=== PATIENT | male | born 1950 | race Caucasian/White ===

== ENCOUNTER 2016-12-19 01:22 | Observation (INO) | payer MEDICARE, OTHER ==
--- NOTE | 2016-12-19 01:42 | PDOC ---
History of Present Illness - General History Source: Patient, EMS <Nguyễn Ace - Last Filed: 12/19/16 04:31> - General History Source: Patient Exam Limitations: Intoxication - History of Present Illness Initial Comments: 12/19/16 02:04 The patient is a 66 year old male with no significant past medical history, who presents to the emergency department s/p unwitnessed mechanical fall earlier this evening. The patient reports he was had approximately 2 pints of vodka earlier this evening. After ETOH consumption, he reports going on a walk, slipping on ice, and falling on his left elbow. The patient does not report the length of time he was down for. He reports associated left elbow pain, that is exacerbated upon extension of the left arm. Per EMS, the patient was seen on the ground behind an [place]body shop [place] his home, during which neighbors called EMS to the scene. The patient denies any head trauma or LOC. The patient denies any fever, chills, cough, headache, or dizziness. The patient denies any chest pain, palpitations, shortness of breath, diaphoresis, lower extremity edema, or lightheadedness. The patient reports he has been able to ambulate normally prior to fall. Allergies: None reported. Past Surgical History: None reported. Social History: Current everyday smoker(30 cigarettes per day). Current ETOH use. Denies drug use. PCP: Dr. Gonzalo Naylor <Ephraim Marin - Last Filed: 12/19/16 06:50> - General Chief Complaint: Bone Injury Stated Complaint: INJURY TO LEFT ELBOW Time Seen by Provider: 12/19/16 01:42 Past History - Psycho/Social/Smoking Cessation Hx Suicidal Ideation: No Smoking History: Current every day smoker Number of Cigarettes Smoked Daily: 30 Information on smoking cessation initiated: No Hx Alcohol Use: No Drug/Substance Use Hx: No <Nguyễn Ace - Last Filed: 12/19/16 04:31> <Ephraim Marin - Last Filed: 12/19/16 06:50> - Past Medical History Allergies/Adverse Reactions: Allergies Allergy/AdvReac Type Severity Reaction Status Date / Time No Known Allergies Allergy Verified 12/19/16 01:32 Home Medications: Ambulatory Orders NK [No Known Home Medication] 12/19/16 Review of Systems - Review of Systems Able to Perform ROS?: Yes Comments:: 12/19/16 02:06 CONSTITUTIONAL: Absent: fever, no chills, no fatigue EYES: Absent: visual changes ENT: Absent: ear pain, no sore throat CARDIOVASCULAR: Absent: chest pain, no palpitations RESPIRATORY: Absent: cough, no SOB GI: Absent: abdominal pain, no nausea, no vomiting, no constipation, no diarrhea GENITOURINARY: Absent: dysuria, no frequency, no hematuria MUSKULOSKELETAL: Present: +left elbow pain Absent: back pain SKIN: Absent: rash NEURO: Absent: headache <Marin,Giomilsy - Last Filed: 12/19/16 06:50> *Physical Exam - Vital Signs Last Vital Signs Temp Pulse Resp BP Pulse Ox 98.6 F 99 H 14 134/94 97 12/19/16 01:32 12/19/16 01:32 12/19/16 01:32 12/19/16 01:32 12/19/16 01:32 <Nguyễn Ace - Last Filed: 12/19/16 04:31> - Vital Signs Last Vital Signs Temp Pulse Resp BP Pulse Ox 98.6 F 99 H 14 134/94 97 12/19/16 01:32 12/19/16 01:32 12/19/16 01:32 12/19/16 01:32 12/19/16 01:32 - Physical Exam Comments: 12/19/16 02:05 GENERAL: Well developed, well nourished. Awake and alert. No acute distress. HEENT: Normocephalic, atraumatic. PERRLA, EOMI. No conjunctival pallor. Sclera are non- icteric. Moist mucous membranes. Oropharynx is clear. NECK: Supple. Full ROM. No JVD. Carotid pulses 2+ and symmetric, without bruits. No thyromegaly. No lymphadenopathy. CARDIOVASCULAR: Regular rate and rhythm. No murmurs, rubs, or gallops. Distal pulses are 2+ and symmetric. PULMONARY: No evidence of respiratory distress. Lungs clear to auscultation bilaterally. No wheezing, rales or rhonchi. ABDOMINAL: Soft. Non-tender. Non-distended. No rebound or guarding. No organomegaly. Normoactive bowel sounds. MUSCULOSKELETAL Major left elbow deformity. No CVA tenderness. EXTREMITIES: No cyanosis. No clubbing. No edema. No calf tenderness. SKIN: Warm and dry. Normal capillary refill. No rashes. No jaundice. NEUROLOGICAL: Alert, awake, appropriate. Cranial nerves 2-12 intact. No deficits to light touch and temperature in face, upper extremities and lower extremities. No motor deficits in the in face, upper extremities and lower extremities. Normoreflexic in the upper and lower extremities. Normal speech. Toes are down- going bilaterally. Gait is normal without ataxia. PSYCHIATRIC: Cooperative. Good eye contact. Appropriate mood and affect. <Ephraim Marin - Last Filed: 12/19/16 06:50> Heart Score/ECG Review - ECG Impressions Comment:: 12/19/16 02:59 Vent. Rate: 95 bpm IMPRESSION: Sinus rhythm with occasional premature ventricular complexes. Possible anterolateral infarct. <Ephraim Marin - Last Filed: 12/19/16 06:50> ED Treatment Course - LABORATORY CBC & Chemistry Diagram: 12/19/16 01:35 12/19/16 03:15 <Nguyễn Ace - Last Filed: 12/19/16 04:31> - LABORATORY CBC & Chemistry Diagram: 12/19/16 01:35 12/19/16 03:15 - Medications Given in the ED: ED Medications Discontinued Medications Generic Name Dose Route Start Last Admin Trade Name Teddyq PRN Reason Stop Dose Admin Morphine Sulfate 6 mg 12/19/16 01:47 12/19/16 01:55 Morphine Injection - IVPUSH 12/19/16 01:48 6 mg ONCE ONE Administration Ondansetron HCl 4 mg 12/19/16 01:47 12/19/16 01:55 Zofran Injection IVPUSH 12/19/16 01:48 4 mg ONCE STA Administration <Ephraim Marin - Last Filed: 12/19/16 06:50> Medical Decision Making - Medical Decision Making 12/19/16 04:31 Dr. Ace: The scribe's documentation has been prepared under my direction and personally reviewed by me in its entirery. I confirm that the note above accurately reflects all work, treatment, procedures, and medical decision making performed by me. Patient underwent moderate sedation for reduction of his left elbow. patient pre-medicated with IV ketamine 80 mg, patient also given Versed 2 mg. Reduction was achieved by traction counter traction above and below joint. 40 mg additional ketamine ivp. Patient placed an posterior splint patient tolerated procedure well <Nguyễn Ace - Last Filed: 12/19/16 04:31> - Medical Decision Making 12/19/16 02:43 First call placed to Dr. Garcia at 02:42. Case discussed at this time. First call placed to Dr. Bhatti at 06:49. Awaiting call back. <Ephraim Marin - Last Filed: 12/19/16 06:50> *DC/Admit/Observation/Transfer - Discharge Dispostion Admit: Yes <Nguyễn Ace - Last Filed: 12/19/16 04:31> - Attestations Scribe Attestion: 12/19/16 02:08 Documentation prepared by Ephraim Marin, acting as medical art therapist for Nguyễn Ace DO. <Ephraim Marin - Last Filed: 12/19/16 06:50> Diagnosis at time of Disposition: Left elbow fracture Qualifiers: Encounter type: initial encounter Fracture type: closed Qualified Code(s): S42.402A - Unspecified fracture of lower end of left humerus, initial encounter for closed fracture Dislocation, elbow closed Qualifiers: Laterality: left - Referrals
[2016-12-19] MEDS ORDERED: morphine CARPU-JECT 2 MG/1 ML DISP.SYRIN IVPUSH ONE (01:47)
[2016-12-19] MEDS ORDERED: ONDANSETRON 4 MG/2 ML VIAL IVPUSH STA (01:47)
[2016-12-19] MEDS ORDERED: morphine CARPU-JECT 4 MG/1 ML DISP.SYRIN ONE (01:51)
[2016-12-19] MEDS ORDERED: morphine CARPU-JECT 2 MG/1 ML DISP.SYRIN ONE (01:51)
[2016-12-19 02:04] LABS: BASOPHIL 1.1 % (0-2.0); EOSINOPHIL 0.4 % (0-4.5); MCH 29.3 pg (25.7-33.7); MCHC 32.7 g/dl (32.0-35.9); MEAN CELL VOLUME 89.9 fl (80-96); MEAN PLT VOLUME 8.7 fl (7.5-11.1); NEUTROPHILS 65.1 % (42.8-82.8); PLATELET COUNT 309 K/MM3 (134-434); RDW 13.3 % (11.9-15.9); WHITE BLOOD COUNT 16.7 K/mm3 (4.0-10.0)
[2016-12-19] MEDS ORDERED: KETAMINE HCL 200 MG/20 ML VIAL IVPUSH ONE ×2 (02:17→02:41)
[2016-12-19] MEDS ORDERED: KETAMINE HCL 200 MG/20 ML VIAL ONE (02:25)
[2016-12-19] MEDS ORDERED: MIDAZOLAM HCL 2 MG/2 ML SINGLE DOSE VIAL IVPUSH ONE (02:41)
[2016-12-19 03:43] LABS: INR 1.28 (0.82-1.09); PROTHROMBIN TIME (PATIENT) 14.2 SEC (9.98-11.88)
[2016-12-19 03:54] LABS: ALBUMIN 2.7 g/dl (3.4-5.0); ANION GAP 13 (8-16); CALCIUM 7.7 mg/dL (8.5-10.1); CO2 22 mmol/L (21-32); CREATININE 0.9 mg/dL (0.7-1.3); GLUCOSE,RANDOM 68 mg/dL (74-106); SGOT/AST 27 U/L (15-37); SGPT/ALT 15 U/L (12-78)
[2016-12-19] MEDS ORDERED: morphine CARPU-JECT 4 MG/1 ML DISP.SYRIN IVPUSH ONE (03:55)
[2016-12-19 03:56] LABS: ALK PHOS 67 U/L (45-117); BILIRUBIN,TOTAL 0.4 mg/dL (0.2-1.0); TOT PROT 7.6 g/dl (6.4-8.2)
[2016-12-19] MEDS ORDERED: ONDANSETRON 4 MG/2 ML VIAL IVPUSH ONE (03:56)
[2016-12-19] MEDS ORDERED: ONDANSETRON 4 MG/2 ML VIAL IVPB PRN (04:25)
[2016-12-19 05:09] VITALS: BMI 22.6
[2016-12-19] MEDS: DEXTROSE 5%-0.45% SALINE 1,000 ML IV SCH ×2 (06:26→18:44)
--- NOTE | 2016-12-19 10:05 | EKG ---
Test Reason : Blood Pressure : / mmHG Vent. Rate : 095 BPM Atrial Rate : 095 BPM P-R Int : 144 ms QRS Dur : 084 ms QT Int : 376 ms P-R-T Axes : 074 075 060 degrees QTc Int : 472 ms SINUS RHYTHM POSSIBLE ANTEROLATERAL INFARCT , AGE UNDETERMINED POOR R WAVE PROGRESSION ABNORMAL ECG NO PREVIOUS ECGS AVAILABLE Confirmed by KIRIT OCHOA MD ([id number]) on 12/19/2016 10:05:17 AM Referred By: Confirmed By:KIRIT OCHOA MD
--- NOTE | 2016-12-19 14:44 | CONSULT ---
Consult - History of Present Illness History of Present Illness: 66y/o male fell while intoxicated with ETOH early this morning. Was found to have a dislocated elbow and underwent closed reduction in the ER. Pt complaints of hand weakness since this morning. Pt does not remember much from the incident. - History Source History Provided By: Patient, Medical Record - Alcohol/Substance Use Hx Alcohol Use: Yes - Smoking History Smoking history: Current every day smoker Have you smoked in the past 12 months: Yes Aproximately how many cigarettes per day: 30 Home Medications - Allergies Allergies/Adverse Reactions: Allergies Allergy/AdvReac Type Severity Reaction Status Date / Time No Known Allergies Allergy Verified 12/19/16 01:32 - Home Medications Home Medications: Ambulatory Orders NK [No Known Home Medication] 12/19/16 Physical Exam Vital Signs: Vital Signs Temperature 98.5 F 12/19/16 11:11 Pulse Rate 93 H 12/19/16 11:11 Respiratory Rate 18 12/19/16 11:11 Blood Pressure 111/70 12/19/16 11:11 O2 Sat by Pulse Oximetry (%) 98 12/19/16 09:00 Constitutional: Yes: Well Nourished, No Distress, Calm HENT: Yes: Atraumatic, Normocephalic Extremities: Yes: Other (LUE: Posterior elbow splint in place. Mild edema of the hand. Pt is unable to extend his wrist activly or give thumbs up sign. No sensory deficits. 5/5 strength with OK sign. 2/5 strength with finger spread exam. +2 radial pulse.) Labs: CBC, BMP 12/19/16 03:15 Imaging - Results X-ray: Report Reviewed, Image Reviewed Cat Scan: Report Reviewed, Image Reviewed (Elbow reduced) Assessment/Plan #1 Elbow dislocation s/p reduction -F/u with Dr. Burnett early next week -Pt states hand is feeling better throughout the day and feels like it is getting stronger -Finger ROM exercises
--- NOTE | 2016-12-19 15:14 | HP ---
Admitting History and Physical - Smoking History Smoking history: Current every day smoker Have you smoked in the past 12 months: Yes Aproximately how many cigarettes per day: 30 - Alcohol/Substance Use Hx Alcohol Use: Yes Home Medications - Allergies Allergies/Adverse Reactions: Allergies Allergy/AdvReac Type Severity Reaction Status Date / Time No Known Allergies Allergy Verified 12/19/16 01:32 - Home Medications Home Medications: Ambulatory Orders NK [No Known Home Medication] 12/19/16 Physical Examination Vital Signs: Vital Signs Temperature 98.8 F 12/19/16 14:46 Pulse Rate 86 12/19/16 14:46 Respiratory Rate 18 12/19/16 14:46 Blood Pressure 135/77 12/19/16 14:46 O2 Sat by Pulse Oximetry (%) 98 12/19/16 09:00 Labs: CBC, BMP 12/19/16 03:15
[2016-12-19 17:44] LABS: BASOPHIL 0.6 % (0-2.0); EOSINOPHIL 0.4 % (0-4.5); MCH 29.3 pg (25.7-33.7); MCHC 32.8 g/dl (32.0-35.9); MEAN CELL VOLUME 89.4 fl (80-96); MEAN PLT VOLUME 8.4 fl (7.5-11.1); NEUTROPHILS 60.3 % (42.8-82.8); PLATELET COUNT 254 K/MM3 (134-434); RDW 13.3 % (11.9-15.9); WHITE BLOOD COUNT 8.8 K/mm3 (4.0-10.0)
[2016-12-19 18:31] LABS: ALBUMIN 2.7 g/dl (3.4-5.0); ALK PHOS 64 U/L (45-117); ANION GAP 11 (8-16); BILIRUBIN,TOTAL 0.5 mg/dL (0.2-1.0); CALCIUM 8.2 mg/dL (8.5-10.1); CO2 25 mmol/L (21-32); CREATININE 0.8 mg/dL (0.7-1.3); GLUCOSE,RANDOM 82 mg/dL (74-106); SGOT/AST 48 U/L (15-37); SGPT/ALT 16 U/L (12-78); TOT PROT 7.5 g/dl (6.4-8.2)
[2016-12-19] MEDS: morphine CARPU-JECT 4 MG/1 ML DISP.SYRIN IVPUSH PRN ×2 (18:34→23:37)
[2016-12-20] MEDS ORDERED: traMADol HCL 50 MG TABLET PO PRN (02:10)
[2016-12-20] MEDS: DEXTROSE 5%-0.45% SALINE 1,000 ML IV SCH (06:17)
--- NOTE | 2016-12-20 11:02 | PN ---
Progress Note (short form) - Note Progress Note: pt states left arm feels better Afeb Splint intact Neuro exam unchanged - still unable to extend thumb/wrist; flexion of thumb/ wrist intact Hand remains swollen, has rings in ring finger without sign of neurovascular compromise of the digit - patient does not want to cut the rings as they are important to him. discussed that if they disrupt circulation to the finger, they will need to be cut s/p left elbow dislocation with radial nerve palsy -placed arm in stockinette for strict elevation to help with swelling -discussed that it can take several weeks for wrist function to return and that permanent deficits are possible -no indication for urgent exploration as this is likely a neuropraxia -will follow neuro exams while here -ok to d/c from my standpoint with follow up with dr Burnett next week
[2016-12-20 18:46] VITALS: BP 112/67; PULSE 94; TEMP 99.1
== END 2016-12-20 18:58 | disposition home or self-care (01) ==
LOC: JER 01:22 → INTOOBSV 02:40 → JERBED 02:40 → UNDOADMOB 02:40 → UNDOADMIN 02:47 → JERBED 02:47 → J7W 04:07 → JERBED 12-20 02:09 → J7W 12-20 02:09
PROVIDERS: ADMIT Internal Medicine; ATTEND Internal Medicine
PROC: 0PSDXZZ Reposition Left Humeral Head, External Approach (ICD-10-PCS; principal; 2016-12-20)
DX: S42.492A Other displaced fracture of lower end of left humerus, initial encounter for closed fracture (principal); W18.39XA Other fall on same level, initial encounter; Y93.89 Activity, other specified; Y92.89 Other specified places as the place of occurrence of the external cause; Y99.8 Other external cause status; F17.210 Nicotine dependence, cigarettes, uncomplicated; F10.10 Alcohol abuse, uncomplicated
CPT/HCPCS: 36415; 71010-TC; 73070-TC-LT; 73200-TC-RT; 80053; 85025; 85610; 86850; 86900; 86901; 93005; 93010; 99285-25; G0378

== ENCOUNTER 2018-02-10 20:43 | Inpatient (IN) | payer OTHER ==
--- NOTE | 2018-02-10 21:06 | PDOC ---
Rapid Medical Evaluation Time Seen by Provider: 02/10/18 21:04 Medical Evaluation: Allergies Allergy/AdvReac Type Severity Reaction Status Date / Time No Known Allergies Allergy Verified 12/19/16 01:32 02/10/18 21:04 I have performed a brief in-person evaluation of this patient. The patient presents with a chief complaint of: found by EMS on [facility] with urine/feces all over him, intoxicated, c/o of pain to R leg Pertinent physical exam findings: intoxicated I have ordered the following: labs, x-ray The patient will proceed to the ED for further evaluation. Discharge Disposition - Diagnosis Knee pain - Referrals - Patient Instructions - Post Discharge Activity
[2018-02-10 21:36] LABS: BASO % 0.6 % (0-2.0); EOS % 0.3 % (0-4.5); HEMATOCRIT 34.9 % (35.4-49); HEMOGLOBIN 11.8 GM/dL (11.7-16.9); LYMPH % 24.1 % (8-40); MCH 30.4 pg (25.7-33.7); MCHC 33.9 g/dl (32.0-35.9); MEAN CELL VOLUME 89.7 fl (80-96); MEAN PLT VOLUME 8.1 fl (7.5-11.1); MONO % 13.9 % (3.8-10.2); NEUT % 61.1 % (42.8-82.8); PLATELET COUNT 172 K/MM3 (134-434); RBC 3.88 M/mm3 (4.00-5.60); RDW 16.3 % (11.9-15.9); WHITE BLOOD COUNT 12.3 K/mm3 (4.0-10.0)
[2018-02-10 22:10] LABS: ALBUMIN 3.4 g/dl (3.4-5.0); ALK PHOS 76 U/L (45-117); ANION GAP 7 (8-16); BILIRUBIN,TOTAL 0.3 mg/dL (0.2-1.0); CALCIUM 8.6 mg/dL (8.5-10.1); CHLORIDE 106 mmol/L (98-107); CO2 26 mmol/L (21-32); CREATININE 1.3 mg/dL (0.7-1.3); GLUCOSE,RANDOM 85 mg/dL (74-106); POTASSIUM 4.2 mmol/L (3.5-5.1); SGOT/AST 23 U/L (15-37); SGPT/ALT 18 U/L (12-78); SODIUM 139 mmol/L (136-145)
[2018-02-10 22:12] LABS: BLOOD UREA NITROGEN 39 mg/dL (7-18)
--- NOTE | 2018-02-10 22:13 | PDOC ---
History of Present Illness - General History Source: Patient Exam Limitations: No Limitations - History of Present Illness Initial Comments: 02/10/18 22:34 The patient is a 67 year old male, with a significant past medical history of hypertension and ETOH use (3 times per week), who presents to the emergency department with bilateral leg pain for approximately 2 weeks. The patient reports increased pain with ambulation over the past two weeks. In the past week patient endorses increased erythema and swelling to his lower extremities bilaterally. He denies any recent fever, chills, cough, headache, or dizziness. He denies any chest pain, shortness of breath, diaphoresis, or palpitations. He endorses mild abdominal discomfort after eating, but denies any nausea, vomiting , diarrhea, or constipation. He denies any dysuria, hematuria, frequency, or urgency. Patient reports he is homeless. Allergies: NKDA Past Surgical History: None reported Social History: ETOH use 3x per week. Non smoker. No recreational drug use. <Ephraim Marin - Last Filed: 02/11/18 01:46> <Halina Fox - Last Filed: 02/11/18 02:07> - General Chief Complaint: Pain, Acute Stated Complaint: WOUND Time Seen by Provider: 02/10/18 21:04 Past History <Ephraim Marin - Last Filed: 02/11/18 01:46> - Immunization History Immunization Up to Date: No - Suicide/Smoking/Psychosocial Hx Smoking History: Never smoked Have you smoked in the past 12 months: No Number of Cigarettes Smoked Daily: 30 Information on smoking cessation initiated: No Hx Alcohol Use: Yes Drug/Substance Use Hx: No Substance Use Type: Alcohol <Halina Fox - Last Filed: 02/11/18 02:07> - Past Medical History Allergies/Adverse Reactions: Allergies Allergy/AdvReac Type Severity Reaction Status Date / Time No Known Allergies Allergy Verified 02/10/18 21:07 Home Medications: Ambulatory Orders NK [No Known Home Medication] 02/11/18 Review of Systems - Review of Systems Able to Perform ROS?: Yes Comments:: 02/10/18 22:34 GENERAL/CONSTITUTIONAL: No fever or chills. No weakness. HEAD, EYES, EARS, NOSE AND THROAT: No change in vision. No ear pain or discharge. No sore throat. GASTROINTESTINAL:+Abdominal discomfort with eating. No nausea, vomiting, diarrhea or constipation. GENITOURINARY: No dysuria, frequency, or change in urination. CARDIOVASCULAR: No chest pain or shortness of breath. RESPIRATORY: No cough, wheezing, or hemoptysis. MUSCULOSKELETAL: +Bilateral lower extremity pain, edema, and erythema. No neck or back pain. SKIN: +Erythema and edema to legs bilaterally. NEUROLOGIC: No headache, vertigo, loss of consciousness, or change in strength/ sensation. ENDOCRINE: No increased thirst. No abnormal weight change. HEMATOLOGIC/LYMPHATIC: No anemia, easy bleeding, or history of blood clots. ALLERGIC/IMMUNOLOGIC: No hives or skin allergy. <Ephraim Marin - Last Filed: 02/11/18 01:46> *Physical Exam - Vital Signs Last Vital Signs Temp Pulse Resp BP Pulse Ox 98.1 F 108 H 16 128/76 100 02/10/18 21:04 02/10/18 21:04 02/10/18 21:04 02/10/18 21:04 02/10/18 21:04 - Physical Exam Comments: 02/10/18 22:35 Constitutional: Awake, alert, oriented. No acute distress. Head: Normocephalic. Atraumatic Eyes: PERRL. EOMI. Conjunctivae are not pale. ENT: Mucous membranes are moist and intact. Posterior pharynx without exudates or erythema. Uvula midline. Neck: Supple. Full ROM. No lymphadenopathy. Cardiovascular: Tachycardic. Regular rhythm. S1, S2 regular. Distal pulses are 2+ and symmetric. Pulmonary/Chest: No evidence of respiratory distress. Clear to auscultation bilaterally No wheezing, rales or rhonchi. Abdominal: Soft and non-distended. There is no tenderness. No rebound, guarding or rigidity. No organomegaly. No palpable masses. Good bowel sounds. Back: No CVA tenderness. Musculoskeletal: Trenched feet bilaterally, with skin breakdown at the base of the first metarsal bilaterally. Skin breakdown at the medial aspect of the left tibia. Cellulitis from the base of the feet bilaterally to the groin. Bilateral lower extremity edema, left greater than right. No cyanosis. No clubbing. Full range of motion in all extremities. Radial/pedal pulses are intact and 2+ bilaterally Skin: Bilateral lower extremity edema and erythema. Skin is warm and dry. No petechiae. No purpura. Neurological: Alert and oriented to person, place, and time. Cranial nerves II -XII are grossly intact. Normal speech. Strength is grossly symmetric. No sensory deficits. Psychiatric: Good eye contact. Normal interaction, affect and behavior. <Ephraim Marin - Last Filed: 02/11/18 01:46> - Vital Signs Last Vital Signs Temp Pulse Resp BP Pulse Ox 98.1 F 108 H 16 128/76 100 02/10/18 21:04 02/10/18 21:04 02/10/18 21:04 02/10/18 21:04 02/10/18 21:04 <Halina Fox - Last Filed: 02/11/18 02:07> ED Treatment Course - LABORATORY CBC & Chemistry Diagram: 02/10/18 21:23 02/10/18 21:23 - ADDITIONAL ORDERS Additional order review: Laboratory Results 02/10/18 21:23 Sodium 139 Potassium 4.2 Chloride 106 Carbon Dioxide 26 Anion Gap 7 L BUN 39 H D Creatinine 1.3 D Creat Clearance w eGFR 55.06 Random Glucose 85 Calcium 8.6 Total Bilirubin 0.3 D AST 23 D ALT 18 Alkaline Phosphatase 76 Total Protein 8.0 Albumin 3.4 D Alcohol, Quantitative 216.62 H* 02/10/18 21:23 RBC 3.88 L MCV 89.7 MCHC 33.9 RDW 16.3 H D MPV 8.1 Neutrophils % 61.1 Lymphocytes % 24.1 Monocytes % 13.9 H Eosinophils % 0.3 Basophils % 0.6 <Ephraim Marin - Last Filed: 02/11/18 01:46> - LABORATORY CBC & Chemistry Diagram: 02/10/18 21:23 02/10/18 21:23 - ADDITIONAL ORDERS Additional order review: Laboratory Results 02/10/18 21:23 Alcohol, Quantitative 216.62 H* 02/10/18 21:23 RBC 3.88 L MCV 89.7 MCHC 33.9 RDW 16.3 H D MPV 8.1 Neutrophils % 61.1 Lymphocytes % 24.1 Monocytes % 13.9 H Eosinophils % 0.3 Basophils % 0.6 <Halina Fox - Last Filed: 02/11/18 02:07> Medical Decision Making - Medical Decision Making 02/11/18 01:47 First call placed to Dr. Garcia at 13:26. Awaiting call back. <Ephraim Marin - Last Filed: 02/11/18 01:46> - Medical Decision Making 02/11/18 00:13 a/p: 67yo homeless male with b/l leg pain -diffuse redness and warmth concerning for cellulitis to B/L LE -intoxicated -disheveled -urinates on himself -no hx of etoh withdrawal -will check labs, cultures, dopplers, ekg -will start broad spectrum abx -discussed plan with the patient -will need nystatin topical to groin -will monitor and reassess 02/11/18 01:[address] alvarez kelley 02/11/18 02:06 pt states he does not see Dr. Naylor will call [facility] for obs 02/11/18 02:[address] Browning - accepts pt to service under obs tele will place consult to dr. lehman for etoh abuse <Halina Fox - Last Filed: 02/11/18 02:07> *DC/Admit/Observation/Transfer - Attestations Scribe Attestion: 02/10/18 22:35 Documentation prepared by Ephraim Marin, acting as pediatrician/medical doctor for Halina Fox DO. <Ephraim Marin - Last Filed: 02/11/18 01:46> - Discharge Dispostion Admit: Yes - Attestations Physician Attestion: 02/11/18 00:15 I, Dr. Halina Fox DO, attest that this document has been prepared under my direction and personally reviewed by me in its entirety. I further attest, that it accurately reflects all work, treatment, procedures and medical decision -making performed by me. <Halina Fox - Last Filed: 02/11/18 02:07> Diagnosis at time of Disposition: Knee pain, Bilateral cellulitis of lower leg, Alcohol intoxication - Discharge Dispostion Condition at time of disposition: Fair
[2018-02-10] MEDS ORDERED: PIPERACILLIN/TAZOB 4.5 GM/100 ML PREMIX BAG IVPB ONE (22:41)
[2018-02-10] MEDS ORDERED: FOLIC ACID INJECTION - 1 MG, THIAMINE HCL 100 MG, MULTIVIT INJECTION ADULT 10 ML in SOD... IVPB ONE (22:41)
[2018-02-10] MEDS ORDERED: VANCOMYCIN 1,000 MG in DEXTROSE 5%-WATER - 250 ML IVPB ONE (22:42)
[2018-02-10] MEDS ORDERED: PIPERACILLIN/TAZOB 4.5 GM 4.5 GM in DEXTROSE 5%-WATER 100 ML IVPB ONE (23:00)
[2018-02-10] MEDS ORDERED: PIPERACILLIN/TAZOB 4.5 GM 4.5 GM/100 ML BAG IVPB ONE (23:29)
[2018-02-10] MEDS ORDERED: VANCOMYCIN 1 GRAM (PRE-DOCKED) 1,000 MG/250 ML BAG IVPB ONE (23:31)
[2018-02-11 00:23] LABS: URINE APPEARANCE CLEAR; URINE BILIRUBIN NEGATIVE (<2.0 mg/dL); URINE BLOOD NEGATIVE (NEGATIVE); URINE COLOR COLORLESS; URINE GLUCOSE (UA) NEGATIVE (NEGATIVE); URINE KETONE NEGATIVE (NEGATIVE); URINE LEUK ESTERASE NEGATIVE (NEGATIVE); URINE NITRITE NEGATIVE (NEGATIVE); URINE PROTEIN NEGATIVE (NEGATIVE); URINE UROBILINOGEN NEGATIVE mg/dL (0.2-1.0)
[2018-02-11] MEDS ORDERED: SODIUM CHLORIDE 0.9% 1000 ML INFUS.BAG IV ONE (02:08)
--- NOTE | 2018-02-11 02:13 | PN ---
Teaching Attending Note Name of Resident: eDstiny Chase ATTENDING PHYSICIAN STATEMENT I saw and evaluated the patient. I reviewed the resident's note and discussed the case with the resident. I agree with the resident's findings and plan as documented. SUBJECTIVE: 67 yo M with pmhx. of HTN and ETOH abuse who presents with bilateral leg pain X 2 weeks. States pain is worsened over the course of the past two weeks. No fevers or chills. No cough, shortness or breath, chest pain or pressure, OBJECTIVE: Physical: Vs: Vital Signs Period Temp Pulse Resp BP Sys/Hallman Pulse Ox Last 24 Hr 98.1 F 108 16 128/76 100 GEN: NAD, Resting in bed, AA0X3 HEENT: NCAT, PERRL, Throat without erythema or exudtaes CARD: S Tach S1, S2 RESP: CTAB ABD: BSx4, NTD to palpation EXT: Bilateral LE Cellulitis to Knees Pulses intact, warm CBCD WBC 12.3 K/mm3 (4.0-10.0) H D 02/10/18 21:23 RBC 3.88 M/mm3 (4.00-5.60) L 02/10/18 21:23 Hgb 11.8 GM/dL (11.7-16.9) 02/10/18 21:23 Hct 34.9 % (35.4-49) L 02/10/18 21:23 MCV 89.7 fl (80-96) 02/10/18 21:23 MCHC 33.9 g/dl (32.0-35.9) 02/10/18 21:23 RDW 16.3 % (11.9-15.9) H D 02/10/18 21:23 Plt Count 172 K/MM3 (134-434) D 02/10/18 21:23 MPV 8.1 fl (7.5-11.1) 02/10/18 21:23 CMP Sodium 139 mmol/L (136-145) 02/10/18 21:23 Potassium 4.2 mmol/L (3.5-5.1) 02/10/18 21:23 Chloride 106 mmol/L (98-107) 02/10/18 21:23 Carbon Dioxide 26 mmol/L (21-32) 02/10/18 21:23 Anion Gap 7 (8-16) L 02/10/18 21:23 BUN 39 mg/dL (7-18) H D 02/10/18 21:23 Creatinine 1.3 mg/dL (0.7-1.3) D 02/10/18 21:23 Creat Clearance w eGFR 55.06 (>60) 02/10/18 21:23 Random Glucose 85 mg/dL (74-106) 02/10/18 21:23 Calcium 8.6 mg/dL (8.5-10.1) 02/10/18 21:23 Total Bilirubin 0.3 mg/dL (0.2-1.0) D 02/10/18 21:23 AST 23 U/L (15-37) D 02/10/18 21:23 ALT 18 U/L (12-78) 02/10/18 21:23 Alkaline Phosphatase 76 U/L (45-117) 02/10/18 21:23 Total Protein 8.0 g/dl (6.4-8.2) 02/10/18 21:23 Albumin 3.4 g/dl (3.4-5.0) D 02/10/18 21:23 CXR- No Acute Proces Duplex LE-Pending EKG- Stach ASSESSMENT AND PLAN: 67 M with pmhx. of Etoh abuse/htn presents with LE edema, Erythema, being admitted for bilateral cellulitis 1.) Cellulitits Bilateral - Vanco/Clinda - ID consult - CX 2.) Etoh Abuse - CIWA - Banana Bag - Thiamine/Folic A - Detox Consult 3.) HTN - Now better controlled - Not on any meds 4.) Dvt Ppx - Heparin [address] in Med-Tele
--- NOTE | 2018-02-11 03:12 | HP ---
CHIEF COMPLAINT: Leg pain PCP: None HISTORY OF PRESENT ILLNESS: 67yo homeless M with PMHx of HTN and EtOH abuse presented to the ER intoxicated with BLLE pain & redness. He endorses 2 weeks of gradually worsening erythema and swelling up to knees bilaterally, and gradually increasing pain until he is finally unable to ambulate. Denies fevers, chills, CP, SOB. In the ER, he was afebrile but tachycardic to the 100s. Labs were notable for elevated WBC and lactic acid of 2.5. Sepsis protocol was initiated and pt was escobar cultured and given IVF, Vanc/Zosyn. Duplex bilateral was performed, pending results. Recent Travel: Denies PAST MEDICAL HISTORY: Denies PAST SURGICAL HISTORY: Denies Social History: Smoking: Denies Alcohol: Daily drinker Drugs: Denies Allergies: No Known Allergies Allergy (Verified 02/10/18 21:07) HOME MEDICATIONS: Home Medications Medication Instructions Recorded NK [No Known Home Medication] 02/11/18 REVIEW OF SYSTEMS CONSTITUTIONAL: Absent: fever, chills, diaphoresis, generalized weakness, malaise, loss of appetite, weight change HEENT: Absent: rhinorrhea, nasal congestion, throat pain, throat swelling, difficulty swallowing, mouth swelling, ear pain, eye pain, visual changes CARDIOVASCULAR: Absent: chest pain, syncope, palpitations, irregular heart rate , lightheadedness, peripheral edema RESPIRATORY: Absent: cough, shortness of breath, dyspnea with exertion, orthopnea, wheezing, stridor, hemoptysis GASTROINTESTINAL:Absent: abdominal pain, abdominal distension, nausea, vomiting , diarrhea, constipation, melena, hematochezia GENITOURINARY: Absent: dysuria, frequency, urgency, hesitancy, hematuria, flank pain, genital pain MUSCULOSKELETAL: Absent: myalgia, arthralgia, joint swelling, back pain, neck pain SKIN: Absent: rash, itching, pallor HEMATOLOGIC/IMMUNOLOGIC: Absent: easy bleeding, easy bruising, lymphadenopathy, frequent infections ENDOCRINE:Absent: unexplained weight gain, unexplained weight loss, heat intolerance, cold intolerance NEUROLOGIC: Absent: headache, focal weakness or paresthesias, dizziness, unsteady gait, seizure, mental status changes, bladder or bowel incontinence PSYCHIATRIC: Absent: anxiety, depression, suicidal or homicidal ideation, hallucinations. PHYSICAL EXAMINATION Vital Signs Period Temp Pulse Resp BP Sys/Hallman Pulse Ox Last 24 Hr 98.1 F 108 16 128/76 100 GEN: Appears ill, disheveled, awake, but breathing using accessory muscles, sleepy HEENT: PERRLA, difficult to assess EOM CV: S1, S2, RRR LUNG: CTABL MSK: Bilateral erythema from feet up to knees. Exquisitely tender to palpation. No obvious abscess. No crepitus. Multiple open sores. No obvious pitting edmea NEURO: Not cooperative ASSESSMENT/PLAN: 67yo homeless M with PMHx of EtOH abuse presented with 2 weeks of BLLE pain and redness, admitted for severe sepsis 2/2 cellulitis # Severe Sepsis 2/2 cellulitis -- Cellulitis is likely from direct innoculation, patient has multiple open sores. Given IVF bolus and given a dose of Vanc/Zosyn in ER. Will continue IVF and start Clindamycin to cover for G+ and anaerobes. BCx pending. Duplex to r/o thromboembolism, results pending. Morphine for pain. ID consulted. Trending lactic acid # EtOH abuse -- Start banana bag and then daily thiamine/folate. Hold librium as patient is still intoxicated. Watch for withdrawal symptoms # HTN -- Not on home meds. Contorlled now. Monitor # FEN/PPX -- IVF, Sodium controlled diet. HSQ TID # Dispo -- Admit to med/surg Case d/w Dr Browning & Dr Chase Morning team to take over care in AM Syed Warren MD - pGY1 Night Higher Education Administrator Visit type - Emergency Visit Emergency Visit: Yes ED Registration Date: 02/11/18 Care time: The patient presented to the Emergency Department on the above date and was hospitalized for further evaluation of their emergent condition. - New Patient This patient is new to me today: Yes Date on this admission: 02/11/18 - Critical Care Critical Care patient: No Hospitalist Screening - Colonoscopy Questionnaire Colonoscopy Questionnaire: Colonoscopy Questionnaire - Patient: 50 - 75 years old and never had a screening colonoscopy: Unknown History of colon or rectal polyps, or CA: Unknown History of IBD, Crohn's disease or UC: Unknown History of abdominal radiation therapy as a child: Unknown - Relative: 1 with colon or rectal CA, or polyps at age 60 or younger: Unknown Colon or rectal CA diagnosed at age 45 or younger: Unknown Multiple relatives with colon or rectal CA: Unknown - Outcome: Screening Result: Negative Screen
[2018-02-11] MEDS ORDERED: CLINDAMYCIN 600MG PREMIX IVPB 600 MG/50 ML BAG IVPB SCH (03:15)
--- NOTE | 2018-02-11 03:32 | CONSULT ---
Consult Detox [facility] Reason for Current Admission/Consult: substance use Referred by:: Halina Fox - History History of Present Illness: 67 yo homeless M with PMHx of HTN, alcohol use disorder severe, presented to the ER intoxicated with BLLE pain & redness. reports 2 weeks of gradually worsening erythema and swelling up to knees bilaterally, and gradually increasing pain until he is finally unable to ambulate.now developing alcoho witrawlsx requesting inpatient detoxifiation while hospitalized. denies h/o seizures, DTs or SI. ws recently hospitalized at [facility] a few months ago with pneumonia In - History Source History Provided By: Patient, Medical Record, Caregiver Limitations to Obtaining History: No Limitations - Alcohol/Substance Use Hx Alcohol Use: Yes - Current Drug/Alcohol Use Alcohol Route: Oral Frequency: Daily Amount used: 3 pitns vodka daily Age of first use: 16 Date of Last Use: 02/10/18 - Significant Medical Findings: 67 yo m with h/o htn, alcoho use idorder , severe admitted intoxicated with cellulitis now on antibioitcs and developing alcohol withdawal sx CIWA Score - CIWA Score Nausea/Vomitin-Mild Nausea/No Vomiting Muscle Tremors: 2 Anxiety: 1-Mildly Anxious Agitation: 1-Slight > Activity Paroxysmal Sweats: 1-Minimal Palms Moist Orientation: 0-Oriented Tacttile Disturbances: 1-Very Mild Itch/Numbness Auditory Disturbances: 0-None Visual Disturbances: 0-None Headache: 1-Very Mild CIWA-Ar Total Score: 8 Assessment Plan - Diagnosis (1) Alcohol dependence with uncomplicated withdrawal Status: Acute (2) Nicotine dependence Status: Acute (3) Alcohol intoxication Status: Acute (4) Bilateral cellulitis of lower leg Status: Acute (5) Knee pain Status: Acute (6) Dislocation, elbow closed Status: Acute Qualifiers: Laterality: left (7) Left elbow fracture Status: Acute Qualifiers: Encounter type: initial encounter Fracture type: closed Qualified Code(s) : S42.402A - Unspecified fracture of lower end of left humerus, initial encounter for closed fracture - Plan Plan: chart, imaging, labs reviewed. Patient examined and history taken. care discussed with medical team. REcommend: 1. alcohol intoxicaton on admission 2. alcohol use diorder, severe, appears to be developing alcohol withdrwal sx, start libirum detox as ordered/3. fluids, vitamins as ordered. 3. antibiotics as per primary team 4. consider inpatient rehab when medically stable at [facility]. Sudarshan Hollis MD - Medication Detox Regimen/Protocol: Librium
[2018-02-11] MEDS ORDERED: ONDANSETRON 4 MG TABLET PO PRN (03:34)
[2018-02-11] MEDS ORDERED: CLINDAMYCIN 600MG PREMIX IVPB 600 MG/50 ML BAG IVPB ONE (03:35)
[2018-02-11] MEDS: SODIUM CHLORIDE 1,000 ML IV SCH ×2 (03:44→22:43)
[2018-02-11] MEDS ORDERED: morphine SULFATE 4 MG/ML VIAL ONE (04:38)
[2018-02-11] MEDS: morphine SULFATE 4 MG/ML VIAL IVPUSH PRN (05:30)
[2018-02-11] MEDS ORDERED: HEPARIN NA (PORCINE) 5,000 UNITS/ML 1ML VIAL ONE ×2 (06:13→14:34)
[2018-02-11] MEDS: HEPARIN NA (PORCINE) 5,000 UNITS/ML 1ML VIAL SQ SCH ×3 (06:14→22:43)
[2018-02-11 06:21] LABS: COCAINE, UR NEGATIVE ng/ml (CUTOFF=300); METHADONE, UR NEGATIVE ng/ml (CUTOFF=300); OPIATES, URI NEGATIVE ng/ml (CUTOFF=300); PHENCYCLIDINE,URINE NEGATIVE ng/ml (CUTOFF=25); URINE AMPHETAMINES NEGATIVE ng/ml (CUTOFF=500); URINE BARBITURATES NEGATIVE ng/ml (CUTOFF=200); URINE BENZODIAZEPINES NEGATIVE ng/ml (CUTOFF=200)
[2018-02-11 07:12] LABS: HEMATOCRIT 35.1 % (35.4-49); HEMOGLOBIN 11.9 GM/dL (11.7-16.9); MCH 30.3 pg (25.7-33.7); MCHC 33.8 g/dl (32.0-35.9); MEAN CELL VOLUME 89.6 fl (80-96); MEAN PLT VOLUME 8.5 fl (7.5-11.1); PLATELET COUNT 148 K/MM3 (134-434); RBC 3.92 M/mm3 (4.00-5.60); RDW 16.5 % (11.9-15.9); WHITE BLOOD COUNT 7.9 K/mm3 (4.0-10.0)
[2018-02-11 07:42] LABS: ANION GAP 9 (8-16); BLOOD UREA NITROGEN 25 mg/dL (7-18); CALCIUM 8.1 mg/dL (8.5-10.1); CHLORIDE 108 mmol/L (98-107); CO2 26 mmol/L (21-32); CREATININE 0.9 mg/dL (0.7-1.3); GLUCOSE,RANDOM 92 mg/dL (74-106); SODIUM 143 mmol/L (136-145)
--- NOTE | 2018-02-11 08:56 | PN ---
Progress Note (short form) - Note Progress Note: ID Acute and chronic alcoholism Selected Entries 02/10/18 02/11/18 21:04 06:45 Temperature 98.1 F Pulse Rate 108 H Pulse Rate [ 103 H Right Apical] Respiratory 16 Rate Blood Pressure 128/76 O2 Sat by Pulse 100 Oximetry (%) Weight 160 lb Microbiology Laboratory Tests 02/10/18 02/10/18 02/11/18 21:23 21:23 00:15 WBC 12.3 H D Hct 34.9 L Plt Count 172 D BUN 39 H D Creat Clearance w eGFR 55.06 Ur Leukocyte Esterase Negative Treat for cellulitis lower extremity mostly LLE Plan Cultures Unasyn 1.5grs q 6 H Problem List - Problems (1) Alcohol intoxication Code(s): F10.929 - ALCOHOL USE, UNSPECIFIED WITH INTOXICATION, UNSPECIFIED (2) Bilateral cellulitis of lower leg Code(s): L03.116 - CELLULITIS OF LEFT LOWER LIMB; L03.115 - CELLULITIS OF RIGHT LOWER LIMB
[2018-02-11] MEDS ORDERED: PT OWN MED DRAWER 7, Y5N ONE (09:43)
--- NOTE | 2018-02-11 09:47 | CONS ---
DATE OF CONSULTATION: DATE OF DICTATION: 02/11/2018 INFECTIOUS DISEASE CONSULTATION HISTORY OF PRESENT ILLNESS: This is a 67-year-old male with a history of chronic and now acute alcoholism, who presented intoxicated to the emergency room and complained of bilateral lower extremity, mostly left lower extremity, erythema and pain. In the emergency room, he was afebrile but tachycardic in the 100s and had a mildly elevated white blood cell count, with a lactic acid of 2.5. He received vancomycin and Zosyn with clindamycin. I am asked to see him for further evaluation. The patient is currently intoxicated and can offer little meaningful history, but denies any history of diabetes. PAST MEDICAL HISTORY: As previously noted. MEDICATIONS: None. ALLERGIES: None known. SOCIAL HISTORY: Smoker and drinks alcohol. No history of drug use. HIV status unknown. FAMILY HISTORY: Noncontributory. REVIEW OF SYSTEMS: Respiratory: No cough or shortness of breath. Cardiac: No chest pain. History of heart murmur. Gastrointestinal: Denies abdominal pain, vomiting, hematemesis, blood per rectum. Genitourinary: Denies dysuria, hematuria or urinary frequency. PHYSICAL EXAMINATION: Vital Signs: Temperature 98, pulse 108, respirations 16, blood pressure 127/66. General: A disheveled male with poor hygiene noted. Neck: Supple. Lungs: Clear. Heart: S1, S2. Regular rhythm. No murmur. Abdomen: Soft, nontender, without organomegaly. Extremities: Multiple dry eschars of both feet. Both legs were swollen, the left was with confluent erythema from the foot to the knee. No purulent drainage noted. DIAGNOSTIC STUDIES: White count was 12.3, hemoglobin 11.8, platelets 172. BUN 39, creatinine 1.3, lactic acid 2.5. Liver enzymes within normal limits. Total protein 8, albumin 3.4. Alcohol level 216. ASSESSMENT: Bilateral lower extremity cellulitis, mostly the left lower extremity, in a 67-year-old male with acute alcohol intoxication. PLAN: Two sets of blood cultures, empiric therapy with ampicillin and sulbactam 1.5 g q.6 hours. Detox protocol. PO VASQUEZ M.D. [id number]
[2018-02-11] MEDS: THIAMINE HCL 100 MG TABLET (FP) PO SCH (10:06)
[2018-02-11] MEDS: FOLIC ACID 1 MG TABLET (FP) PO SCH (10:06)
[2018-02-11] MEDS: PRENATAL VITAMINS W/ FOLIC ACID TABLET (FP) PO SCH (10:06)
[2018-02-11] MEDS: AMPICILLIN NA/SULBACTAM NA 1.5 GM in SODIUM CHLORIDE 100 ML IVPB SCH ×3 (10:15→22:30)
--- NOTE | 2018-02-11 13:20 | PN ---
Physical Exam: SUBJECTIVE: Patient seen and examined in the ED. Awaiting bed assignment. Alert and oriented, upper sorbian speaking. States he is homeless, sleeps in shelters sometimes, sometimes in the streets. At times seeks halfway under a bridge. He has a sister, cannot stay with her. did not elaborate as to why. He has bilateral feet abrasions, edema with foul odor. He attributes his wounds to urine seeping into his socks which he does not change often. He also also has a wound on his left inner thigh, from urine, appears like a chemical burn? OBJECTIVE: CIWA score at this time is 0, not intoxicated on exam. Calm and cooperative. Will monitor mental status and withdrawal symptoms. Vital Signs Period Temp Pulse Resp BP Sys/Hallman Pulse Ox Last 24 Hr 98.1 F 103-108 16-18 126-128/69-76 96-100 GENERAL: The patient is awake, alert, and fully oriented, in no acute distress. HEAD: Normal with no signs of trauma. EYES: PERRL, extraocular movements intact, sclera anicteric, conjunctiva clear. No ptosis. ENT: Ears normal, nares patent, oropharynx clear without exudates, moist mucous membranes. NECK: Trachea midline, full range of motion, supple. HEART: Regular rate and rhythm ABDOMEN: Soft, nontender, nondistended, normoactive bowel sounds EXTREMITIES: redness on left leg from ankle upwards to thigh, also has a possible chemical burn wound on left inner thigh (pt states its from urine). Both feet with malodours wounds. Patient states its from urine. He does not change his socks often and urinates on himself. NEUROLOGICAL: Normal speech PSYCH: Normal mood, normal affect. Laboratory Results - last 24 hr 02/10/18 02/10/18 02/10/18 21:23 21:23 22:30 WBC 12.3 H D RBC 3.88 L Hgb 11.8 Hct 34.9 L MCV 89.7 MCH 30.4 MCHC 33.9 RDW 16.3 H D Plt Count 172 D MPV 8.1 Neutrophils % 61.1 Lymphocytes % 24.1 Monocytes % 13.9 H Eosinophils % 0.3 Basophils % 0.6 Sodium 139 Potassium 4.2 Chloride 106 Carbon Dioxide 26 Anion Gap 7 L BUN 39 H D Creatinine 1.3 D Creat Clearance w eGFR 55.06 Random Glucose 85 Lactic Acid 2.5 H* Calcium 8.6 Phosphorus Magnesium Total Bilirubin 0.3 D AST 23 D ALT 18 Alkaline Phosphatase 76 Total Protein 8.0 Albumin 3.4 D Urine Color Urine Appearance Urine pH Ur Specific [place] Urine Protein Urine Glucose (UA) Urine Ketones Urine Blood Urine Nitrite Urine Bilirubin Urine Urobilinogen Ur Leukocyte Esterase Opiates Screen Methadone Screen Barbiturate Screen Phencyclidine Screen Ur Amphetamines Screen MDMA (Ecstasy) Screen Benzodiazepines Screen Cocaine Screen U Marijuana (THC) Screen Alcohol, Quantitative 216.62 H* 02/10/18 02/11/18 02/11/18 23:15 00:15 04:00 WBC RBC Hgb Hct MCV MCH MCHC RDW Plt Count MPV Neutrophils % Lymphocytes % Monocytes % Eosinophils % Basophils % Sodium Potassium Chloride Carbon Dioxide Anion Gap BUN Creatinine Creat Clearance w eGFR Random Glucose Lactic Acid 1.4 Calcium Phosphorus Magnesium 2.2 Total Bilirubin AST ALT Alkaline Phosphatase Total Protein Albumin Urine Color Colorless Urine Appearance Clear Urine pH 6.0 Ur Specific [place] 1.003 Urine Protein Negative Urine Glucose (UA) Negative Urine Ketones Negative Urine Blood Negative Urine Nitrite Negative Urine Bilirubin Negative Urine Urobilinogen Negative Ur Leukocyte Esterase Negative Opiates Screen Methadone Screen Barbiturate Screen Phencyclidine Screen Ur Amphetamines Screen MDMA (Ecstasy) Screen Benzodiazepines Screen Cocaine Screen U Marijuana (THC) Screen Alcohol, Quantitative 02/11/18 02/11/18 02/11/18 05:40 05:52 05:52 WBC 7.9 D RBC 3.92 L Hgb 11.9 Hct 35.1 L MCV 89.6 MCH 30.3 MCHC 33.8 RDW 16.5 H Plt Count 148 MPV 8.5 Neutrophils % Lymphocytes % Monocytes % Eosinophils % Basophils % Sodium 143 Potassium 4.0 Chloride 108 H Carbon Dioxide 26 Anion Gap 9 BUN 25 H D Creatinine 0.9 D Creat Clearance w eGFR Random Glucose 92 Lactic Acid Calcium 8.1 L Phosphorus 3.0 Magnesium 2.0 Total Bilirubin AST ALT Alkaline Phosphatase Total Protein Albumin Urine Color Urine Appearance Urine pH Ur Specific [place] Urine Protein Urine Glucose (UA) Urine Ketones Urine Blood Urine Nitrite Urine Bilirubin Urine Urobilinogen Ur Leukocyte Esterase Opiates Screen Negative Methadone Screen Negative Barbiturate Screen Negative Phencyclidine Screen Negative Ur Amphetamines Screen Negative MDMA (Ecstasy) Screen Negative Benzodiazepines Screen Negative Cocaine Screen Negative U Marijuana (THC) Screen Negative Alcohol, Quantitative 02/11/18 05:52 WBC RBC Hgb Hct MCV MCH MCHC RDW Plt Count MPV Neutrophils % Lymphocytes % Monocytes % Eosinophils % Basophils % Sodium Potassium Chloride Carbon Dioxide Anion Gap BUN Creatinine Creat Clearance w eGFR Random Glucose Lactic Acid Calcium Phosphorus Magnesium Total Bilirubin AST ALT Alkaline Phosphatase Total Protein Albumin Urine Color Urine Appearance Urine pH Ur Specific [place] Urine Protein Urine Glucose (UA) Urine Ketones Urine Blood Urine Nitrite Urine Bilirubin Urine Urobilinogen Ur Leukocyte Esterase Opiates Screen Methadone Screen Barbiturate Screen Phencyclidine Screen Ur Amphetamines Screen MDMA (Ecstasy) Screen Benzodiazepines Screen Cocaine Screen U Marijuana (THC) Screen Alcohol, Quantitative < 5.0 Active Medications Generic Name Dose Route Start Last Admin Trade Name Freq PRN Reason Stop Dose Admin Folic Acid 1 mg 02/11/18 10:00 02/11/18 10:06 Folic Acid - PO 1 mg DAILY ROBERTO Administration Heparin Sodium (Porcine) 5,000 unit 02/11/18 06:00 02/11/18 06:14 Heparin - SQ 5,000 unit TID ROBERTO Administration Sodium Chloride 1,000 mls @ 100 mls/hr 02/11/18 03:00 02/11/18 03:44 Normal Saline - IV 100 mls/hr ASDIR ROBERTO Administration Ampicillin Sodium/Sulbactam 100 mls @ 200 mls/hr 02/11/18 09:30 02/11/18 10: 15 Sodium 1.5 gm/ Sodium Chloride IVPB 200 mls/hr Q6H-IV ROBERTO Administration Morphine Sulfate 2 mg 02/11/18 03:12 02/11/18 05:30 Morphine Sulfate IVPUSH 2 mg Q6H PRN Administration PAIN LEVEL 7 - 10 Ondansetron HCl 8 mg 02/11/18 03:34 Zofran - PO Q6H PRN NAUSEA AND/OR VOMITING Multivit/Folic Acid/Iron 1 tab 02/11/18 10:00 02/11/18 10:06 Vitamins (Sjr) - PO 1 tab DAILY ROBERTO Administration Thiamine HCl 100 mg 02/11/18 10:00 02/11/18 10:06 Vitamin B1 - PO 100 mg DAILY ROBERTO Administration ASSESSMENT/PLAN: Patient is a 67 year old homeless man hypertension and ETOH abuse presented to the ER intoxicated with BLLE pain & redness. He endorses 2 weeks of gradually worsening erythema and swelling up to knees bilaterally, and gradually increasing pain until he is finally unable to ambulate. Denies fevers, chills, CP, SOB. Negative for DVT ID: Severe Sepsis secondary to cellulitis of bilateral lower exterminates Lactic acidosis resolved with fluid bolus Blood and urine cultures On Ampicillin per ID Monitor wounds wound care consult Psyche: ETOH abuse Started on Libirum taper per Dr Hollis Card: Hypertension, chronic On no home meds Monitor BP in the setting of sepsis F.E.N. Fluids: stop IVF tomorrow , encourage PO Electrolytes: monitor Nutrition: low salt Prophy: DVT: Heparin GI: deferred. Disposition: full code. Visit type - Emergency Visit Emergency Visit: Yes ED Registration Date: 02/11/18 Care time: The patient presented to the Emergency Department on the above date and was hospitalized for further evaluation of their emergent condition. - New Patient This patient is new to me today: Yes Date on this admission: 02/12/18 - Critical Care Critical Care patient: No - Discharge Referral Referred to [facility] Med P.C.: No
--- NOTE | 2018-02-11 13:30 | EKG ---
Test Reason : Blood Pressure : / mmHG Vent. Rate : 098 BPM Atrial Rate : 098 BPM P-R Int : 144 ms QRS Dur : 090 ms QT Int : 354 ms P-R-T Axes : 078 070 067 degrees QTc Int : 451 ms SINUS RHYTHM WITH PREMATURE ATRIAL COMPLEXES OTHERWISE NORMAL ECG WHEN COMPARED WITH ECG OF 19-DEC-2016 02:56, PREMATURE ATRIAL COMPLEXES ARE NOW PRESENT BORDERLINE CRITERIA FOR ANTERIOR INFARCT ARE NO LONGER PRESENT BORDERLINE CRITERIA FOR ANTEROLATERAL INFARCT ARE NO LONGER PRESENT NONSPECIFIC T WAVE ABNORMALITY NO LONGER EVIDENT IN LATERAL LEADS Confirmed by KIRT ENGLISH MD ([id number]) on 02/11/2018 1:30:50 PM Referred By: Confirmed By:KIRT ENGLISH MD
[2018-02-11] MEDS ORDERED: chlordiazePOXIDE HCL 25 MG CAPSULE PO ONE (18:31)
[2018-02-11] MEDS ORDERED: chlordiazePOXIDE HCL 25 MG CAPSULE PO PRN (18:31)
[2018-02-11] MEDS ORDERED: chlordiazePOXIDE HCL 25 MG CAPSULE ONE (18:45)
[2018-02-11] MEDS: chlordiazePOXIDE HCL 25 MG CAPSULE PO SCH (22:43)
[2018-02-12] MEDS: SODIUM CHLORIDE 1,000 ML IV SCH (03:04)
[2018-02-12] MEDS: AMPICILLIN NA/SULBACTAM NA 1.5 GM in SODIUM CHLORIDE 100 ML IVPB SCH ×4 (03:04→21:09)
[2018-02-12] MEDS: chlordiazePOXIDE HCL 25 MG CAPSULE PO SCH ×4 (05:40→22:52)
[2018-02-12] MEDS: HEPARIN NA (PORCINE) 5,000 UNITS/ML 1ML VIAL SQ SCH ×3 (05:40→21:09)
[2018-02-12 06:59] VITALS: BMI 24.2
[2018-02-12] MEDS ORDERED: PT OWN MED DRAWER 7, Y5N ONE ×2 (09:12→21:00)
[2018-02-12] MEDS: FOLIC ACID 1 MG TABLET (FP) PO SCH (09:20)
[2018-02-12] MEDS: PRENATAL VITAMINS W/ FOLIC ACID TABLET (FP) PO SCH (09:20)
[2018-02-12] MEDS: THIAMINE HCL 100 MG TABLET (FP) PO SCH (09:20)
--- NOTE | 2018-02-12 10:26 | PN ---
Physical Exam: SUBJECTIVE: Patient seen and examined. Feels better, in no acute distress. OBJECTIVE: Bilateral leg wounds improving Will consult wound care [id number], lipid panel in a.m. Can discontinue tele monitoring Vital Signs Period Temp Pulse Resp BP Sys/Hallman Pulse Ox Last 24 Hr 98.1 F-99.7 F 85-93 18-20 100-140/61-91 95-96 GENERAL: The patient is awake, alert, and fully oriented, in no acute distress. HEAD: Normal with no signs of trauma. EYES: PERRL, extraocular movements intact, sclera anicteric, conjunctiva clear. No ptosis. ENT: Ears normal, nares patent, oropharynx clear without exudates, moist mucous membranes. NECK: Trachea midline, full range of motion, supple. HEART: Regular rate and rhythm ABDOMEN: Soft, nontender, nondistended, normoactive bowel sounds EXTREMITIES: redness on left leg from ankle upwards to thigh, also has a possible chemical burn wound on left inner thigh (pt states its from urine). Both feet with malodours wounds. Patient states its from urine. He does not change his socks often and urinates on himself. NEUROLOGICAL: Normal speech PSYCH: Normal mood, normal affect. Active Medications Generic Name Dose Route Start Last Admin Trade Name Freq PRN Reason Stop Dose Admin Chlordiazepoxide HCl 50 mg 02/11/18 23:00 02/12/18 05:40 Librium - PO 02/12/18 17:01 50 mg [id number] ROBERTO Administration Chlordiazepoxide HCl 25 mg 02/12/18 23:00 Librium - PO 02/13/18 17:01 [id number] ROBERTO Chlordiazepoxide HCl 15 mg 02/13/18 23:00 Librium - PO 02/14/18 17:01 [id number] ROBERTO Chlordiazepoxide HCl 25 mg 02/11/18 18:31 Librium - PO 02/14/18 18:30 Q4H PRN WITHDRAWAL(CONT SUBST) Folic Acid 1 mg 02/11/18 10:00 02/12/18 09:20 Folic Acid - PO 1 mg DAILY ROBERTO Administration Heparin Sodium (Porcine) 5,000 unit 02/11/18 06:00 02/12/18 05:40 Heparin - SQ 5,000 unit TID ROBERTO Administration Sodium Chloride 1,000 mls @ 100 mls/hr 02/11/18 03:00 02/12/18 03:04 Normal Saline - IV Not Given ASDIR ROBERTO Ampicillin Sodium/Sulbactam 100 mls @ 200 mls/hr 02/11/18 09:30 02/12/18 09: 16 Sodium 1.5 gm/ Sodium Chloride IVPB 200 mls/hr Q6H-IV ROBERTO Administration Morphine Sulfate 2 mg 02/11/18 03:12 02/11/18 05:30 Morphine Sulfate IVPUSH 2 mg Q6H PRN Administration PAIN LEVEL 7 - 10 Ondansetron HCl 8 mg 02/11/18 03:34 Zofran - PO Q6H PRN NAUSEA AND/OR VOMITING Multivit/Folic Acid/Iron 1 tab 02/11/18 10:00 02/12/18 09:20 Vitamins (Sjr) - PO 1 tab DAILY ROBERTO Administration Thiamine HCl 100 mg 02/11/18 10:00 02/12/18 09:20 Vitamin B1 - PO 100 mg DAILY ROBERTO Administration ASSESSMENT/PLAN: Patient is a 67 year old homeless man hypertension and ETOH abuse presented to the ER intoxicated with BLLE pain & redness. He endorses 2 weeks of gradually worsening erythema and swelling up to knees bilaterally, and gradually increasing pain until he is finally unable to ambulate. Denies fevers, chills, CP, SOB. Negative for DVT ID: Severe Sepsis secondary to cellulitis of bilateral lower exterminates Lactic acidosis resolved with fluid bolus Blood and urine cultures On Ampicillin per ID Monitor wounds wound care consult Psyche: ETOH abuse Started on Libirum taper per Dr Hollis Card: Hypertension, chronic On no home meds Monitor BP in the setting of sepsis F.E.N. Fluids: stop IVF tomorrow , encourage PO Electrolytes: monitor Nutrition: low salt Prophy: DVT: Heparin GI: deferred. Disposition: full code. Visit type - Emergency Visit Emergency Visit: Yes ED Registration Date: 02/11/18 Care time: The patient presented to the Emergency Department on the above date and was hospitalized for further evaluation of their emergent condition. - New Patient This patient is new to me today: No - Critical Care Critical Care patient: No - Discharge Referral Referred to [facility] Med P.C.: No
[2018-02-12] MEDS: morphine SULFATE 4 MG/ML VIAL IVPUSH PRN (22:53)
[2018-02-13] MEDS: AMPICILLIN NA/SULBACTAM NA 1.5 GM in SODIUM CHLORIDE 100 ML IVPB SCH ×4 (02:05→20:12)
[2018-02-13] MEDS: SODIUM CHLORIDE 1,000 ML IV SCH (02:05)
[2018-02-13] MEDS: HEPARIN NA (PORCINE) 5,000 UNITS/ML 1ML VIAL SQ SCH ×3 (06:04→21:39)
[2018-02-13] MEDS: chlordiazePOXIDE HCL 25 MG CAPSULE PO SCH ×3 (06:04→16:46)
[2018-02-13 07:23] LABS: BASO % 0.8 % (0-2.0); HEMATOCRIT 33.9 % (35.4-49); HEMOGLOBIN 11.1 GM/dL (11.7-16.9); LYMPH % 50.4 % (8-40); MCH 29.8 pg (25.7-33.7); MCHC 32.7 g/dl (32.0-35.9); MEAN CELL VOLUME 91.1 fl (80-96); MEAN PLT VOLUME 8.5 fl (7.5-11.1); MONO % 12.6 % (3.8-10.2); NEUT % 35.2 % (42.8-82.8); PLATELET COUNT 143 K/MM3 (134-434); RBC 3.71 M/mm3 (4.00-5.60); RDW 16.7 % (11.9-15.9); WHITE BLOOD COUNT 4.4 K/mm3 (4.0-10.0)
[2018-02-13 07:49] LABS: CHLORIDE 111 mmol/L (98-107); POTASSIUM 3.8 mmol/L (3.5-5.1); SODIUM 142 mmol/L (136-145)
[2018-02-13 07:56] LABS: ALBUMIN 2.3 g/dl (3.4-5.0); ALK PHOS 52 U/L (45-117); ANION GAP 5 (8-16); BILIRUBIN,TOTAL 0.2 mg/dL (0.2-1.0); BLOOD UREA NITROGEN 14 mg/dL (7-18); CALCIUM 7.9 mg/dL (8.5-10.1); CHOLESTEROL 125 mg/dL (50-200); CO2 26 mmol/L (21-32); CREATININE 0.8 mg/dL (0.7-1.3); GLUCOSE,RANDOM 73 mg/dL (74-106); HDL CHOLESTEROL 66 mg/dL (40-60); LDL CHOLESTEROL (ONLY SJRH) 56 mg/dL (5-100); SGOT/AST 13 U/L (15-37); SGPT/ALT 7 U/L (12-78); TOT PROT 6.2 g/dl (6.4-8.2); TRIGLYCERIDES 56 mg/dL (35-160)
[2018-02-13] MEDS ORDERED: PT OWN MED DRAWER 7, Y5N ONE ×3 (10:12→20:08)
[2018-02-13] MEDS: PRENATAL VITAMINS W/ FOLIC ACID TABLET (FP) PO SCH (10:54)
[2018-02-13] MEDS: FOLIC ACID 1 MG TABLET (FP) PO SCH (10:54)
[2018-02-13] MEDS: THIAMINE HCL 100 MG TABLET (FP) PO SCH (10:54)
--- NOTE | 2018-02-13 18:50 | PN ---
Progress Note (short form) - Note Progress Note: Subjective: The patient was seen and examined at the bedside, he has no complaints at this time. Current Medications Generic Name Dose Route Start Last Admin Trade Name Freq PRN Reason Stop Dose Admin Chlordiazepoxide HCl 15 mg 02/13/18 23:00 Librium - PO 02/14/18 17:01 [id number] ROBERTO Chlordiazepoxide HCl 25 mg 02/11/18 18:31 Librium - PO 02/14/18 18:30 Q4H PRN WITHDRAWAL(CONT SUBST) Folic Acid 1 mg 02/11/18 10:00 02/13/18 10:54 Folic Acid - PO 1 mg DAILY ROBERTO Administration Heparin Sodium (Porcine) 5,000 unit 02/11/18 06:00 02/13/18 14:18 Heparin - SQ 5,000 unit TID ROBERTO Administration Sodium Chloride 1,000 mls @ 100 mls/hr 02/11/18 03:00 02/13/18 02:05 Normal Saline - IV 100 mls/hr ASDIR ROBERTO Administration Ampicillin Sodium/Sulbactam 100 mls @ 200 mls/hr 02/11/18 09:30 02/13/18 16: 45 Sodium 1.5 gm/ Sodium Chloride IVPB 200 mls/hr Q6H-IV ROBERTO Administration Morphine Sulfate 2 mg 02/11/18 03:12 02/12/18 22:53 Morphine Sulfate IVPUSH 2 mg Q6H PRN Administration PAIN LEVEL 7 - 10 Ondansetron HCl 8 mg 02/11/18 03:34 Zofran - PO Q6H PRN NAUSEA AND/OR VOMITING Multivit/Folic Acid/Iron 1 tab 02/11/18 10:00 02/13/18 10:54 Vitamins (Sjr) - PO 1 tab DAILY ROBERTO Administration Thiamine HCl 100 mg 02/11/18 10:00 02/13/18 10:54 Vitamin B1 - PO 100 mg DAILY ROBERTO Administration Objective: Vital Signs Period Temp Pulse Resp BP Sys/Hallman Pulse Ox Last 24 Hr 97.9 F-99.4 F 76-84 18-20 103-130/50-86 90 Physical Exam: Patient refused CBCD WBC 4.4 K/mm3 (4.0-10.0) D 02/13/18 06:30 RBC 3.71 M/mm3 (4.00-5.60) L 04/14/18 06:30 Hgb 11.1 GM/dL (11.7-16.9) L 02/13/18 06:30 Hct 33.9 % (35.4-49) L 02/13/18 06:30 MCV 91.1 fl (80-96) 02/13/18 06:30 MCHC 32.7 g/dl (32.0-35.9) 02/13/18 06:30 RDW 16.7 % (11.9-15.9) H 02/13/18 06:30 Plt Count 143 K/MM3 (134-434) 02/13/18 06:30 MPV 8.5 fl (7.5-11.1) 02/13/18 06:30 CMP Sodium 142 mmol/L (136-145) 02/13/18 06:30 Potassium 3.8 mmol/L (3.5-5.1) 02/13/18 06:30 Chloride 111 mmol/L (98-107) H 02/13/18 06:30 Carbon Dioxide 26 mmol/L (21-32) 02/13/18 06:30 Anion Gap 5 (8-16) L 02/13/18 06:30 BUN 14 mg/dL (7-18) D 02/13/18 06:30 Creatinine 0.8 mg/dL (0.7-1.3) 02/13/18 06:30 Creat Clearance w eGFR > 60 (>60) 02/13/18 06:30 Random Glucose 73 mg/dL (74-106) L D 02/13/18 06:30 Calcium 7.9 mg/dL (8.5-10.1) L 02/13/18 06:30 Total Bilirubin 0.2 mg/dL (0.2-1.0) D 02/13/18 06:30 AST 13 U/L (15-37) L D 02/13/18 06:30 ALT 7 U/L (12-78) L D 02/13/18 06:30 Alkaline Phosphatase 52 U/L (45-117) D 02/13/18 06:30 Total Protein 6.2 g/dl (6.4-8.2) L D 02/13/18 06:30 Albumin 2.3 g/dl (3.4-5.0) L D 02/13/18 06:30 Microbiology 02/11/18 00:15 Urine - Urine Clean Catch Urine Culture - Final Proteus Mirabilis 02/10/18 22:30 Blood - Peripheral Venous Blood Culture - Preliminary NO GROWTH OBTAINED AFTER 48 HOURS, INCUBATION TO CONTINUE FOR 3 DAYS. 02/10/18 22:00 Blood - Peripheral Venous Blood Culture - Preliminary NO GROWTH OBTAINED AFTER 48 HOURS, INCUBATION TO CONTINUE FOR 3 DAYS. Assessment: This is a 67 year old male with PMHx of HTN, ETOD abuse who presented to the ED intoxicated with b/l lower extremity pain, erythema, edema. Plan: 1) B/l lower extremity cellulitis
[2018-02-13] MEDS: morphine SULFATE 4 MG/ML VIAL IVPUSH PRN (20:11)
[2018-02-13] MEDS: chlordiazePOXIDE 5 MG CAPSULE PO SCH (22:20)
[2018-02-14] MEDS ORDERED: PT OWN MED DRAWER 7, Y5N ONE ×3 (03:37→21:05)
[2018-02-14] MEDS: AMPICILLIN NA/SULBACTAM NA 1.5 GM in SODIUM CHLORIDE 100 ML IVPB SCH ×4 (03:39→21:17)
[2018-02-14] MEDS: HEPARIN NA (PORCINE) 5,000 UNITS/ML 1ML VIAL SQ SCH ×3 (05:10→21:17)
[2018-02-14] MEDS: SODIUM CHLORIDE 1,000 ML IV SCH (05:10)
[2018-02-14] MEDS: chlordiazePOXIDE 5 MG CAPSULE PO SCH ×3 (05:10→17:54)
[2018-02-14] MEDS: PRENATAL VITAMINS W/ FOLIC ACID TABLET (FP) PO SCH (10:09)
[2018-02-14] MEDS: THIAMINE HCL 100 MG TABLET (FP) PO SCH (10:09)
[2018-02-14] MEDS: FOLIC ACID 1 MG TABLET (FP) PO SCH (10:09)
--- NOTE | 2018-02-14 12:22 | PN ---
Progress Note (short form) - Note Progress Note: Subjective: The patient was seen and examined at the bedside, he has no complaints at this time. Current Medications Generic Name Dose Route Start Last Admin Trade Name Freq PRN Reason Stop Dose Admin Chlordiazepoxide HCl 15 mg 02/13/18 23:00 Librium - PO 02/14/18 17:01 [id number] ROBERTO Chlordiazepoxide HCl 25 mg 02/11/18 18:31 Librium - PO 02/14/18 18:30 Q4H PRN WITHDRAWAL(CONT SUBST) Folic Acid 1 mg 02/11/18 10:00 02/13/18 10:54 Folic Acid - PO 1 mg DAILY ROBERTO Administration Heparin Sodium (Porcine) 5,000 unit 02/11/18 06:00 02/13/18 14:18 Heparin - SQ 5,000 unit TID ROBERTO Administration Sodium Chloride 1,000 mls @ 100 mls/hr 02/11/18 03:00 02/13/18 02:05 Normal Saline - IV 100 mls/hr ASDIR ROBERTO Administration Ampicillin Sodium/Sulbactam 100 mls @ 200 mls/hr 02/11/18 09:30 02/13/18 16: 45 Sodium 1.5 gm/ Sodium Chloride IVPB 200 mls/hr Q6H-IV ROBERTO Administration Morphine Sulfate 2 mg 02/11/18 03:12 02/12/18 22:53 Morphine Sulfate IVPUSH 2 mg Q6H PRN Administration PAIN LEVEL 7 - 10 Ondansetron HCl 8 mg 02/11/18 03:34 Zofran - PO Q6H PRN NAUSEA AND/OR VOMITING Multivit/Folic Acid/Iron 1 tab 02/11/18 10:00 02/13/18 10:54 Vitamins (Sjr) - PO 1 tab DAILY ROBERTO Administration Thiamine HCl 100 mg 02/11/18 10:00 02/13/18 10:54 Vitamin B1 - PO 100 mg DAILY ROBERTO Administration Objective: Vital Signs Period Temp Pulse Resp BP Sys/Hallman Pulse Ox Last 24 Hr 97.9 F-99.4 F 76-84 18-20 103-130/50-86 90 Physical Exam: Patient refused CBCD WBC 4.4 K/mm3 (4.0-10.0) D 02/13/18 06:30 RBC 3.71 M/mm3 (4.00-5.60) L 04/14/18 06:30 Hgb 11.1 GM/dL (11.7-16.9) L 02/13/18 06:30 Hct 33.9 % (35.4-49) L 02/13/18 06:30 MCV 91.1 fl (80-96) 02/13/18 06:30 MCHC 32.7 g/dl (32.0-35.9) 02/13/18 06:30 RDW 16.7 % (11.9-15.9) H 02/13/18 06:30 Plt Count 143 K/MM3 (134-434) 02/13/18 06:30 MPV 8.5 fl (7.5-11.1) 02/13/18 06:30 CMP Sodium 142 mmol/L (136-145) 02/13/18 06:30 Potassium 3.8 mmol/L (3.5-5.1) 02/13/18 06:30 Chloride 111 mmol/L (98-107) H 02/13/18 06:30 Carbon Dioxide 26 mmol/L (21-32) 02/13/18 06:30 Anion Gap 5 (8-16) L 02/13/18 06:30 BUN 14 mg/dL (7-18) D 02/13/18 06:30 Creatinine 0.8 mg/dL (0.7-1.3) 02/13/18 06:30 Creat Clearance w eGFR > 60 (>60) 02/13/18 06:30 Random Glucose 73 mg/dL (74-106) L D 02/13/18 06:30 Calcium 7.9 mg/dL (8.5-10.1) L 02/13/18 06:30 Total Bilirubin 0.2 mg/dL (0.2-1.0) D 02/13/18 06:30 AST 13 U/L (15-37) L D 02/13/18 06:30 ALT 7 U/L (12-78) L D 02/13/18 06:30 Alkaline Phosphatase 52 U/L (45-117) D 02/13/18 06:30 Total Protein 6.2 g/dl (6.4-8.2) L D 02/13/18 06:30 Albumin 2.3 g/dl (3.4-5.0) L D 02/13/18 06:30 Microbiology 02/11/18 00:15 Urine - Urine Clean Catch Urine Culture - Final Proteus Mirabilis 02/10/18 22:30 Blood - Peripheral Venous Blood Culture - Preliminary NO GROWTH OBTAINED AFTER 48 HOURS, INCUBATION TO CONTINUE FOR 3 DAYS. 02/10/18 22:00 Blood - Peripheral Venous Blood Culture - Preliminary NO GROWTH OBTAINED AFTER 48 HOURS, INCUBATION TO CONTINUE FOR 3 DAYS. Assessment: This is a 67 year old male with PMHx of HTN, ETOD abuse who presented to the ED intoxicated with b/l lower extremity pain, erythema, edema. Plan: 1) Severe sepsis 2/2 b/l lower extremity cellulitis, UTI - Continue Unasyn - Blood cultures with no growth - Urine culture with proteus mirabilis - F/u wound care consult - Appreciate ID consult 2) Acute alcohol withdrawal - Continue Librium taper - Appreciate detox consult 3) HTN - Not on home meds - Continue to monitor 4) F/E/N: - Sodium controlled diet - Monitor electrolytes 5) Prophylaxis: - Heparin 5,000u sq tid - PT evaluation 6) Dispo: - Requires continued inpatient care CODE STATUS: FULL CODE Visit type - Emergency Visit Emergency Visit: Yes ED Registration Date: 02/11/18 Care time: The patient presented to the Emergency Department on the above date and was hospitalized for further evaluation of their emergent condition. - New Patient This patient is new to me today: No - Critical Care Critical Care patient: No
[2018-02-15] MEDS: AMPICILLIN NA/SULBACTAM NA 1.5 GM in SODIUM CHLORIDE 100 ML IVPB SCH ×3 (03:38→14:54)
[2018-02-15] MEDS: HEPARIN NA (PORCINE) 5,000 UNITS/ML 1ML VIAL SQ SCH ×2 (06:04→13:23)
[2018-02-15] MEDS: FOLIC ACID 1 MG TABLET (FP) PO SCH (09:18)
[2018-02-15] MEDS: PRENATAL VITAMINS W/ FOLIC ACID TABLET (FP) PO SCH (09:18)
[2018-02-15] MEDS: THIAMINE HCL 100 MG TABLET (FP) PO SCH (09:18)
--- NOTE | 2018-02-15 10:03 | PN ---
Progress Note (short form) - Note Progress Note: Subjective: The patient was seen and examined at the bedside, he has no complaints at this time. Noted the patient defecated and urinated on himself, per RN, he has been doing that since admission. When asked about it, patient reports he is homeless and "that is what I do" Current Medications Generic Name Dose Route Start Last Admin Trade Name Freq PRN Reason Stop Dose Admin Folic Acid 1 mg 02/11/18 10:00 02/15/18 09:18 Folic Acid - PO 1 mg DAILY ROBERTO Administration Heparin Sodium (Porcine) 5,000 unit 02/11/18 06:00 02/15/18 06:04 Heparin - SQ 5,000 unit TID ROBERTO Administration Ampicillin Sodium/Sulbactam 100 mls @ 200 mls/hr 02/11/18 09:30 02/15/18 09: 47 Sodium 1.5 gm/ Sodium Chloride IVPB 200 mls/hr Q6H-IV ROBERTO Administration Ondansetron HCl 8 mg 02/11/18 03:34 Zofran - PO Q6H PRN NAUSEA AND/OR VOMITING Multivit/Folic Acid/Iron 1 tab 02/11/18 10:00 02/15/18 09:18 Vitamins (Sjr) - PO 1 tab DAILY ROBERTO Administration Thiamine HCl 100 mg 02/11/18 10:00 02/15/18 09:18 Vitamin B1 - PO 100 mg DAILY ROBERTO Administration Objective: Vital Signs Period Temp Pulse Resp BP Sys/Hallman Pulse Ox Last 24 Hr 97.9 F-98.9 F 63-75 19-20 122-125/61-65 93 Physical Exam: Patient refused stating "I'm sleeping, not now" Will attempt again this afternoon CBCD WBC 4.4 K/mm3 (4.0-10.0) D 02/13/18 06:30 RBC 3.71 M/mm3 (4.00-5.60) L 02/13/18 06:30 Hgb 11.1 GM/dL (11.7-16.9) L 02/13/18 06:30 Hct 33.9 % (35.4-49) L 02/13/18 06:30 MCV 91.1 fl (80-96) 02/13/18 06:30 MCHC 32.7 g/dl (32.0-35.9) 02/13/18 06:30 RDW 16.7 % (11.9-15.9) H 02/13/18 06:30 Plt Count 143 K/MM3 (134-434) 02/13/18 06:30 MPV 8.5 fl (7.5-11.1) 02/13/18 06:30 CMP Sodium 142 mmol/L (136-145) 02/13/18 06:30 Potassium 3.8 mmol/L (3.5-5.1) 02/13/18 06:30 Chloride 111 mmol/L (98-107) H 02/13/18 06:30 Carbon Dioxide 26 mmol/L (21-32) 02/13/18 06:30 Anion Gap 5 (8-16) L 02/13/18 06:30 BUN 14 mg/dL (7-18) D 02/13/18 06:30 Creatinine 0.8 mg/dL (0.7-1.3) 02/13/18 06:30 Creat Clearance w eGFR > 60 (>60) 02/13/18 06:30 Random Glucose 73 mg/dL (74-106) L D 02/13/18 06:30 Calcium 7.9 mg/dL (8.5-10.1) L 02/13/18 06:30 Total Bilirubin 0.2 mg/dL (0.2-1.0) D 02/13/18 06:30 AST 13 U/L (15-37) L D 02/13/18 06:30 ALT 7 U/L (12-78) L D 02/13/18 06:30 Alkaline Phosphatase 52 U/L (45-117) D 02/13/18 06:30 Total Protein 6.2 g/dl (6.4-8.2) L D 02/13/18 06:30 Albumin 2.3 g/dl (3.4-5.0) L D 02/13/18 06:30 Microbiology 02/10/18 22:30 Blood - Peripheral Venous Blood Culture - Preliminary NO GROWTH OBTAINED AFTER 96 HOURS, INCUBATION TO CONTINUE FOR 1 DAYS. 02/10/18 22:00 Blood - Peripheral Venous Blood Culture - Preliminary NO GROWTH OBTAINED AFTER 96 HOURS, INCUBATION TO CONTINUE FOR 1 DAYS. 02/11/18 00:15 Urine - Urine Clean Catch Urine Culture - Final Proteus Mirabilis Assessment: This is a 67 year old male with PMHx of HTN, ETOD abuse who presented to the ED intoxicated with b/l lower extremity pain, erythema, edema. Plan: 1) Severe sepsis 2/2 b/l lower extremity cellulitis, UTI - Continue Unasyn - Blood cultures with no growth - Urine culture with proteus mirabilis - F/u wound care consult - Appreciate ID consult 2) Acute alcohol withdrawal - Completed Librium taper on 02/14 - Appreciate detox consult 3) HTN - Not on home meds - Continue to monitor 4) F/E/N: - Sodium controlled diet - Monitor electrolytes 5) Prophylaxis: - Heparin 5,000u sq tid - PT evaluation 6) Dispo: - Discussed with case management, patient will need SNF CODE STATUS: FULL CODE Visit type - Emergency Visit Emergency Visit: Yes ED Registration Date: 02/11/18 Care time: The patient presented to the Emergency Department on the above date and was hospitalized for further evaluation of their emergent condition. - New Patient This patient is new to me today: No - Critical Care Critical Care patient: No
--- NOTE | 2018-02-15 11:27 | PN ---
S Progress Note (SOAP) Subjective: pateitn without complaints, completed alcohol detox, homeless, is willing to go to inpatient rehab at [facility] Objective: 02/15/18 12:15 Vital Signs - 24 hr 02/14/18 02/14/18 02/14/18 18:00 21:00 22:00 Temperature 98.0 F 97.9 F Pulse Rate 75 73 Respiratory 19 19 19 Rate Blood Pressure 125/65 122/65 O2 Sat by Pulse 93 L Oximetry (%) 02/15/18 05:32 Temperature 98.9 F Pulse Rate 63 Respiratory 20 Rate Blood Pressure 125/61 O2 Sat by Pulse Oximetry (%) Laboratory Tests 02/10/18 02/10/18 02/10/18 21:23 21:23 22:30 WBC 12.3 H D RBC 3.88 L Hgb 11.8 Hct 34.9 L MCV 89.7 MCH 30.4 MCHC 33.9 RDW 16.3 H D Plt Count 172 D MPV 8.1 Neutrophils % 61.1 Lymphocytes % 24.1 Monocytes % 13.9 H Eosinophils % 0.3 Basophils % 0.6 Sodium 139 Potassium 4.2 Chloride 106 Carbon Dioxide 26 Anion Gap 7 L BUN 39 H D Creatinine 1.3 D Creat Clearance w eGFR 55.06 Random Glucose 85 Hemoglobin A1c % Lactic Acid 2.5 H* Calcium 8.6 Phosphorus Magnesium Total Bilirubin 0.3 D AST 23 D ALT 18 Alkaline Phosphatase 76 Total Protein 8.0 Albumin 3.4 D Triglycerides Cholesterol Total LDL Cholesterol HDL Cholesterol Urine Color Urine Appearance Urine pH Ur Specific Sheldon Urine Protein Urine Glucose (UA) Urine Ketones Urine Blood Urine Nitrite Urine Bilirubin Urine Urobilinogen Ur Leukocyte Esterase Opiates Screen Methadone Screen Barbiturate Screen Phencyclidine Screen Ur Amphetamines Screen MDMA (Ecstasy) Screen Benzodiazepines Screen Cocaine Screen U Marijuana (THC) Screen Alcohol, Quantitative 216.62 H* 02/10/18 02/11/18 02/11/18 23:15 00:15 04:00 WBC RBC Hgb Hct MCV MCH MCHC RDW Plt Count MPV Neutrophils % Lymphocytes % Monocytes % Eosinophils % Basophils % Sodium Potassium Chloride Carbon Dioxide Anion Gap BUN Creatinine Creat Clearance w eGFR Random Glucose Hemoglobin A1c % Lactic Acid 1.4 Calcium Phosphorus Magnesium 2.2 Total Bilirubin AST ALT Alkaline Phosphatase Total Protein Albumin Triglycerides Cholesterol Total LDL Cholesterol HDL Cholesterol Urine Color Colorless Urine Appearance Clear Urine pH 6.0 Ur Specific Sheldon 1.003 Urine Protein Negative Urine Glucose (UA) Negative Urine Ketones Negative Urine Blood Negative Urine Nitrite Negative Urine Bilirubin Negative Urine Urobilinogen Negative Ur Leukocyte Esterase Negative Opiates Screen Methadone Screen Barbiturate Screen Phencyclidine Screen Ur Amphetamines Screen MDMA (Ecstasy) Screen Benzodiazepines Screen Cocaine Screen U Marijuana (THC) Screen Alcohol, Quantitative 02/11/18 02/11/18 02/11/18 05:40 05:52 05:52 WBC 7.9 D RBC 3.92 L Hgb 11.9 Hct 35.1 L MCV 89.6 MCH 30.3 MCHC 33.8 RDW 16.5 H Plt Count 148 MPV 8.5 Neutrophils % Lymphocytes % Monocytes % Eosinophils % Basophils % Sodium 143 Potassium 4.0 Chloride 108 H Carbon Dioxide 26 Anion Gap 9 BUN 25 H D Creatinine 0.9 D Creat Clearance w eGFR Random Glucose 92 Hemoglobin A1c % Lactic Acid Calcium 8.1 L Phosphorus 3.0 Magnesium 2.0 Total Bilirubin AST ALT Alkaline Phosphatase Total Protein Albumin Triglycerides Cholesterol Total LDL Cholesterol HDL Cholesterol Urine Color Urine Appearance Urine pH Ur Specific Sheldon Urine Protein Urine Glucose (UA) Urine Ketones Urine Blood Urine Nitrite Urine Bilirubin Urine Urobilinogen Ur Leukocyte Esterase Opiates Screen Negative Methadone Screen Negative Barbiturate Screen Negative Phencyclidine Screen Negative Ur Amphetamines Screen Negative MDMA (Ecstasy) Screen Negative Benzodiazepines Screen Negative Cocaine Screen Negative U Marijuana (THC) Screen Negative Alcohol, Quantitative 02/11/18 02/13/18 02/13/18 05:52 06:30 06:30 WBC 4.4 D RBC 3.71 L Hgb 11.1 L Hct 33.9 L MCV 91.1 MCH 29.8 MCHC 32.7 RDW 16.7 H Plt Count 143 MPV 8.5 Neutrophils % 35.2 L D Lymphocytes % 50.4 H D Monocytes % 12.6 H Eosinophils % 1.0 D Basophils % 0.8 Sodium 142 Potassium 3.8 Chloride 111 H Carbon Dioxide 26 Anion Gap 5 L BUN 14 D Creatinine 0.8 Creat Clearance w eGFR > 60 Random Glucose 73 L D Hemoglobin A1c % Lactic Acid Calcium 7.9 L Phosphorus Magnesium Total Bilirubin 0.2 D AST 13 L D ALT 7 L D Alkaline Phosphatase 52 D Total Protein 6.2 L D Albumin 2.3 L D Triglycerides 56 Cholesterol 125 Total LDL Cholesterol 56 HDL Cholesterol 66 H Urine Color Urine Appearance Urine pH Ur Specific Sheldon Urine Protein Urine Glucose (UA) Urine Ketones Urine Blood Urine Nitrite Urine Bilirubin Urine Urobilinogen Ur Leukocyte Esterase Opiates Screen Methadone Screen Barbiturate Screen Phencyclidine Screen Ur Amphetamines Screen MDMA (Ecstasy) Screen Benzodiazepines Screen Cocaine Screen U Marijuana (THC) Screen Alcohol, Quantitative < 5.0 02/13/18 06:30 WBC RBC Hgb Hct MCV MCH MCHC RDW Plt Count MPV Neutrophils % Lymphocytes % Monocytes % Eosinophils % Basophils % Sodium Potassium Chloride Carbon Dioxide Anion Gap BUN Creatinine Creat Clearance w eGFR Random Glucose Hemoglobin A1c % 4.5 L Lactic Acid Calcium Phosphorus Magnesium Total Bilirubin AST ALT Alkaline Phosphatase Total Protein Albumin Triglycerides Cholesterol Total LDL Cholesterol HDL Cholesterol Urine Color Urine Appearance Urine pH Ur Specific Sheldon Urine Protein Urine Glucose (UA) Urine Ketones Urine Blood Urine Nitrite Urine Bilirubin Urine Urobilinogen Ur Leukocyte Esterase Opiates Screen Methadone Screen Barbiturate Screen Phencyclidine Screen Ur Amphetamines Screen MDMA (Ecstasy) Screen Benzodiazepines Screen Cocaine Screen U Marijuana (THC) Screen Alcohol, Quantitative Assessment: 02/15/18 12:15 completed detox, medically stable [facility] and insurance is accepted d/w nurse if he has finished his teratment for cellulitits at [facility]
[2018-02-15 14:26] VITALS: BP 128/70; PULSE 74; TEMP 98.1
--- NOTE | 2018-02-15 15:13 | PN ---
Progress Note (short form) - Note Progress Note: ID Unasyn Afebrile Selected Entries 02/15/18 14:00 Temperature 98.1 F Respiratory 20 Rate Blood Pressure 128/70 Microbiology 02/11/18 00:15 Urine - Urine Clean Catch Urine Culture - Final Proteus Mirabilis 02/10/18 22:30 Blood - Peripheral Venous Blood Culture - Preliminary NO GROWTH OBTAINED AFTER 96 HOURS, INCUBATION TO CONTINUE FOR 1 DAYS. 02/10/18 22:00 Blood - Peripheral Venous Blood Culture - Preliminary NO GROWTH OBTAINED AFTER 96 HOURS, INCUBATION TO CONTINUE FOR 1 DAYS. Laboratory Tests 02/10/18 02/10/18 02/11/18 21:23 22:30 05:52 WBC 12.3 H D 7.9 D Plt Count BUN Creatinine Lactic Acid 2.5 H* 02/13/18 02/13/18 06:30 06:30 WBC 4.4 D Plt Count 143 BUN 14 D Creatinine 0.8 Lactic Acid Assessment Chronic alcoholism LE cellulitis much improved Also has Protues UTI ? prostatitis Plan Stop Unasyn Kelfex 500 mg bid for 7 days Swati BOLANOS Problem List - Problems (1) Alcohol intoxication Code(s): F10.929 - ALCOHOL USE, UNSPECIFIED WITH INTOXICATION, UNSPECIFIED (2) Bilateral cellulitis of lower leg Code(s): L03.116 - CELLULITIS OF LEFT LOWER LIMB; L03.115 - CELLULITIS OF RIGHT LOWER LIMB
--- NOTE | 2018-02-15 15:50 | DS ---
Physical Examination Vital Signs: Vital Signs Temperature 98.1 F 02/15/18 14:00 Pulse Rate 74 02/15/18 14:00 Respiratory Rate 20 02/15/18 14:00 Blood Pressure 128/70 02/15/18 14:00 O2 Sat by Pulse Oximetry (%) 93 L 02/14/18 21:00 Labs: CBC, BMP 02/13/18 06:30 02/13/18 06:30 Discharge Summary Reason For Visit: BILATERAL CELLULITIS OF LOWER LEG ETHOH Current Active Problems Alcohol dependence with uncomplicated withdrawal (Acute) Alcohol intoxication (Acute) Bilateral cellulitis of lower leg (Acute) Knee pain (Acute) Nicotine dependence (Acute) Condition: Improved - Instructions Diet, Activity, Other Instructions: Please return to the ED with new persistent, or worsening symptoms. Please follow-up with provides as indicated. Referrals: Jerry Longoria MD [Staff Physician] - 1 Week Cheo Scales MD [Staff Physician] - 1 Week Disposition: TRANSFER ACUTE CARE/OTHER HOSP - Home Medications Comprehensive Discharge Medication List: Ambulatory Orders Cephalexin Monohydrate [Keflex -] 500 mg PO BID #14 capsule 02/15/18 Folic Acid - 1 mg PO DAILY #30 tablet 02/15/18 Vitamins (Sjr) - 1 tab PO DAILY #30 tablet 02/15/18 Thiamine HCl [Vitamin B1 -] 100 mg PO DAILY #30 tablet 02/15/18 - Discharge Referral Referred to [facility] No
[2018-02-15] MEDS ORDERED: CEPHALEXIN MONOHYDRATE 500 MG CAPSULE (UD) PO SCH (22:00)
== END 2018-02-15 17:30 | disposition other institution (70) | DRG 720 ==
LOC: JER 20:43 → JERBED 02-11 02:27 → OBSVTOIN 02-11 02:56 → J4W 02-11 21:12
PROVIDERS: ADMIT Internal Medicine; ATTEND Registered Nurse
PROC: HZ2ZZZZ Detoxification Services for Substance Abuse Treatment (ICD-10-PCS; principal; 2018-02-11)
DX: A41.9 Sepsis, unspecified organism (principal); L03.115 Cellulitis of right lower limb; L03.116 Cellulitis of left lower limb; F10.230 Alcohol dependence with withdrawal, uncomplicated; N39.0 Urinary tract infection, site not specified; I10 Essential (primary) hypertension; E87.2 Acidosis; F17.210 Nicotine dependence, cigarettes, uncomplicated; F10.220 Alcohol dependence with intoxication, uncomplicated; R65.20 Severe sepsis without septic shock; Y90.7 Blood alcohol level of 200-239 mg/100 ml; Z59.0 Homelessness
CPT/HCPCS: 36415; 71046-TC-FY; 73130-TC-RT-FY; 73562-TC-RT-FY; 80048; 80053; 80061; 80307; 81003; 83036; 83605; 83721; 83735; 84100; 85025; 85027; 87040; 87086; 87186; 93005; 93010; 93970-TC; 97116-GP; 97161-GP; 99283-25; G0378; J1644; J7030

== ENCOUNTER 2018-02-15 20:39 | Inpatient (IN) | payer OTHER ==
[2018-02-15 21:17] VITALS: BMI 26.8
[2018-02-15] MEDS ORDERED: MELATONIN 5 MG TABLETS PO PRN (22:00)
--- NOTE | 2018-02-15 23:41 | HP ---
Admission ROS [facility] - [facility] Chief Complaint: SEEKING INPATIENT REHAB SERVICES TO MAINTAIN SOBRIETY Allergies/Adverse Reactions: Allergies Allergy/AdvReac Type Severity Reaction Status Date / Time No Known Allergies Allergy Verified 02/10/18 21:07 History of Present Illness: 67 Y.O. MALE WITH LONG HX/O ALCOHOLISM SENT FROM [facility] FOR INPATIENT REHAB. CLIENT WAS ADMIITED THERE FROM 02/10/2018 TO 02/15/2018 AND WAS DETOXED FOR ALCOHOL AND TREATED FOR BILATERAL LE CELLULITIS WITH IV UNASYN; DC TODAY WITH KEFLEX 500 MG PO BID. THIS IS CLIENTS FIRST TIME IN INPATIENT TXMENT. DENIES ANY SIGNIFICANT PERIOD OF CLEAN TIME. REPORTS PMHX OF PNA, DEPRESSION. Exam Limitations: No Limitations - Ebola screening Have you traveled outside of the country in the last 21 days: No Have you had contact with anyone from an Ebola affected area: No Have you been sick,other than usual withdrawal symptoms: No Do you have a fever: No - Review of Systems Constitutional: Night Sweats EENT: reports: Throat Pain (DIFFICULTY SWALLOWING), Other (CORRECTIVE LENSES) Respiratory: reports: No Symptoms reported Cardiac: reports: No Symptoms Reported GI: reports: Constipated (LAST BM THIS MORNING) : reports: Other (HESITANCY) Integumentary: reports: Change in Hair/Nails, Dryness (BLE), Erythema (BLE), Other (BLE CELLULITS) Neuro: reports: No Symptoms reported (BLACK OUTS), Other Endocrine: reports: No Symptoms Reported Hematology: reports: No Symptoms Reported Psychiatric: reports: Depressed Other Systems: Reviewed and Negative Patient History - Patient Medical History Hx Anemia: No Hx Asthma: No Hx Chronic Obstructive Pulmonary Disease (COPD): No Hx Cancer: No Hx Cardiac Disorders: No Hx Congestive Heart Failure: No Hx Hypertension: No Hx Hypercholesterolemia: No Hx Pacemaker: No HX Cerebrovascular Accident: No Hx Seizures: No Hx Dementia: No Hx Diabetes: No Hx Gastrointestinal Disorders: No Hx Liver Disease: No Hx Genitourinary Disorders: No Hx Sexually Transmitted Disorders: No Hx Renal Disease (ESRD): No Hx Thyroid Disease: No Hx Human Immunodeficiency Virus (HIV): No Hx Hepatitis C: No Hx Depression: Yes Hx Suicide Attempt: No Hx Bipolar Disorder: No Hx Schizophrenia: No Other Medical History: BLE CELLULITIS; PNA - Patient Surgical History Past Surgical History: No - PPD History Previous Implant?: Yes Documented Results: Negative w/o proof Implanted On Prior [facility] Admission?: No PPD to be Administered?: Yes - Smoking Cessation Smoking history: Current every day smoker Have you smoked in the past 12 months: Yes Aproximately how many cigarettes per day: 10 Cigars Per Day: 0 Hx Chewing Tobacco Use: No Initiated information on smoking cessation: Yes 'Breaking Loose' booklet given: 02/15/18 - Substance & Tx. History Hx Alcohol Use: Yes Hx Substance Use: No Substance Use Type: Alcohol Hx Substance Use Treatment: No (COMPLETED DETOX AT [facility]) - Substances Abused VODKA Route: Oral Frequency: Daily Amount used: 3 PINTS Age of first use: 13 Date of Last Use: 02/10/18 Family Disease History - Family Disease History Family Disease History: Heart Disease: Mother (HTN; ), CA: Father ( PROSTATE CA; EMPHYSEMA; ALCOHOLISM), Mother, Other: Father Admission Physical Exam [facility] - Vital Signs Vital Signs: Vital Signs - 24 hr 02/15/18 21:16 Temperature 96.0 F L Pulse Rate 73 Respiratory 18 Rate Blood Pressure 157/92 - Physical General Appearance: Yes: Disheveled, Tremorous, Other (SOILED CLOTHING, MALODUROUS; SMELLS OF URINE) HEENTM: Yes: EOMI, Normocephalic, Normal Voice, JENNY (CORRECTIVE LENES), Pharynx Normal Respiratory: Yes: Chest Non-Tender, Decreased Breath Sounds, No Respiratory Distress Neck: Yes: No masses,lesions,Nodules, Supple, Trachea in good position Breast: Yes: Breast Exam Deferred Cardiology: Yes: Regular Rhythm, Regular Rate, S1, S2 Abdominal: Yes: Non Tender, Soft, Protuberent Genitourinary: Yes: Hesitency Back: Yes: Normal Inspection Musculoskeletal: Yes: full range of Motion Extremities: Yes: Normal Range of Motion, Non-Tender, Tremors, Erythema ( RESOLVING FROM CEELULITIS), Inflammation (RESOLVING 2/2 BLE CELLULITIS) Neurological: Yes: Alert Integumentary: Yes: Dry (POOR SKIN TUGOR SCALY CRACKING SKIN OF HANDS AND FEETS) , Other (FLAKY SCALY CALLUS CRUSTED FEET WITH RESOLVING ERYTHEMA OF BLE) Lymphatic: Yes: Within Normal Limits - Diagnostic (1) Skin turgor poor Current Visit: Yes Status: Acute (2) Psychiatric disorder Current Visit: Yes Status: Suspected (3) Alcohol dependence with uncomplicated withdrawal Current Visit: Yes Status: Chronic (4) Bilateral cellulitis of lower leg Current Visit: Yes Status: Acute (5) Nicotine dependence Current Visit: Yes Status: Chronic Qualifiers: Nicotine product type: cigarettes Substance use status: uncomplicated Qualified Code(s): F17.210 - Nicotine dependence, cigarettes, uncomplicated Cleared for Admission [facility] - Detox or Rehab Detox Regimen/Protocol: Not Applicable Claeared for Rehab Admission: Yes [facility] Breath Alcohol Content Breath Alcohol Content: 0 Urine Drug Screen - Results Drug Screen Negative: No Urine Drug Screen Results: BZO-Benzodiazepines
[2018-02-15] MEDS ORDERED: LOPERAMIDE HCL 2 MG CAPSULE PO PRN (23:57)
[2018-02-15] MEDS ORDERED: MENTHOL/PHENOL 1 EACH UD MM PRN (23:57)
[2018-02-15] MEDS ORDERED: NICOTINE POLACRILEX 2 MG GUM BC PRN (23:57)
[2018-02-15] MEDS ORDERED: P-EPHED 60MG/TRIPROLIDI 2.5MG TABLET PO PRN (23:57)
[2018-02-15] MEDS ORDERED: MAG HYDROX/AL HYDROX/SIMETH 30 ML UNIT-DOSE CUP PO PRN (23:57)
[2018-02-15] MEDS ORDERED: ACETAMINOPHEN 325 MG TABLET (FP) PO PRN (23:57)
[2018-02-15] MEDS ORDERED: MAGNESIUM HYDROX 2400MG/30ML ORAL SUSPENSION 30 ML CUP PO PRN (23:57)
[2018-02-15] MEDS ORDERED: MAGNESIUM CITRATE 300 ML BOTTLE PO PRN (23:57)
[2018-02-15] MEDS ORDERED: hydrOXYzine PAMOATE 50 MG CAPSULE (FP) PO PRN (23:57)
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
[2018-02-16 10:04] LABS: URINE APPEARANCE CLEAR; URINE BILIRUBIN NEGATIVE (<2.0 mg/dL); URINE BLOOD NEGATIVE (NEGATIVE); URINE COLOR STRAW; URINE GLUCOSE (UA) NEGATIVE (NEGATIVE); URINE KETONE NEGATIVE (NEGATIVE); URINE LEUK ESTERASE NEGATIVE (NEGATIVE); URINE NITRITE NEGATIVE (NEGATIVE); URINE PROTEIN NEGATIVE (NEGATIVE); URINE UROBILINOGEN NEGATIVE mg/dL (0.2-1.0)
[2018-02-16] MEDS: PRENATAL VITAMINS W/ FOLIC ACID TABLET (FP) PO SCH (11:00)
[2018-02-16] MEDS: CEPHALEXIN MONOHYDRATE 500 MG CAPSULE (UD) PO SCH ×2 (11:00→21:41)
[2018-02-16] MEDS: NICOTINE 14 MG/24 HOURS TOPICAL PATCH TD SCH (11:08)
[2018-02-16] MEDS ORDERED: AMMONIUM LACTATE 12% LOTION 225 GM BOTTLE TP PRN (13:55)
--- NOTE | 2018-02-16 14:23 | PN ---
[facility] Progress Note Note: S: C/o dry, itchy skin both legs with swelling. Noted increased pressure-like pain in feet at "4" scale when feet pressed. States pressure and and swelling started about 5 days ago. Denies headache or shortness of breath. Vital Signs Temperature 97.5 F L 02/16/18 06:50 Pulse Rate 91 H 02/16/18 06:50 Respiratory Rate 20 02/16/18 06:50 Blood Pressure 151/75 02/16/18 06:50 O2 Sat by Pulse Oximetry (%) O: A&Ox3. BLE taut edema toes to mid calf with increased erythema, warmth and tenderness. Recently started on antibiotics for cellulitis. Pedal pulses (+). Superficial laceration, approximately 20 mm, without drainage, between skin fold at back bottom of (R) great toe area. Skin at feet dry and flaky. Laboratory Last Values Urine Color Straw 02/16/18 08:00 Urine Appearance Clear 02/16/18 08:00 Urine pH 8.0 (5.0-8.0) D 02/16/18 08:00 Ur Specific [place] 1.008 (1.001-1.035) 02/16/18 08:00 Urine Protein Negative (NEGATIVE) 02/16/18 08:00 Urine Glucose (UA) Negative (NEGATIVE) 02/16/18 08:00 Urine Ketones Negative (NEGATIVE) 02/16/18 08:00 Urine Blood Negative (NEGATIVE) 02/16/18 08:00 Urine Nitrite Negative (NEGATIVE) 02/16/18 08:00 Urine Bilirubin Negative (<2.0 mg/dL) 02/16/18 08:00 Urine Urobilinogen Negative mg/dL (0.2-1.0) 02/16/18 08:00 Ur Leukocyte Esterase Negative (NEGATIVE) 02/16/18 08:00 RPR Titer Nonreactive (NONREACTIVE) 02/15/18 06:00 A: Tinea Pedis; Dry skin; cellulitis. Hypertension P: Start on ammonia lactate lotion and Clotrimazole cream. Wash feet daily and dry, thoroughly, especially between toes. Continue antibiotics and anti- hypertensive medications. Encourage leg elevation when in bed. Encouraged to notify staff of any increased swelling or tenderness.
--- NOTE | 2018-02-16 16:55 | EKG ---
Test Reason : Blood Pressure : / mmHG Vent. Rate : 081 BPM Atrial Rate : 081 BPM P-R Int : 142 ms QRS Dur : 086 ms QT Int : 394 ms P-R-T Axes : 071 062 053 degrees QTc Int : 457 ms SINUS RHYTHM WITH MARKED SINUS ARRHYTHMIA OTHERWISE NORMAL ECG WHEN COMPARED WITH ECG OF 11-FEB-2018 01:09, PREMATURE ATRIAL COMPLEXES ARE NO LONGER PRESENT Confirmed by MD Chantal, Eliot ([id number]) on 02/16/2018 4:55:45 PM Referred By: Confirmed By:Eliot Cornejo MD
[2018-02-16] MEDS: CLOTRIMAZOLE 1% CREAM 15 GM TUBE TP SCH (21:41)
[2018-02-16] MEDS ORDERED: SUVOREXANT 10 MG TABLET PO PRN (22:00)
[2018-02-16] MEDS: THIAMINE HCL 100 MG TABLET (FP) PO SCH (22:32)
[2018-02-17] MEDS: guaiFENesin/D-METHORPHAN HB 10 ML UNIT-DOSE CUPS PO PRN (06:40)
[2018-02-17] MEDS ORDERED: PT OWN MED DRAWER 7, Y5N ONE (08:57)
[2018-02-17] MEDS: NICOTINE 14 MG/24 HOURS TOPICAL PATCH TD SCH (10:32)
[2018-02-17] MEDS: PRENATAL VITAMINS W/ FOLIC ACID TABLET (FP) PO SCH (10:32)
[2018-02-17] MEDS: CEPHALEXIN MONOHYDRATE 500 MG CAPSULE (UD) PO SCH ×2 (10:32→21:32)
[2018-02-17] MEDS: CLOTRIMAZOLE 1% CREAM 15 GM TUBE TP SCH ×2 (10:33→21:32)
[2018-02-17] MEDS: THIAMINE HCL 100 MG TABLET (FP) PO SCH (21:32)
[2018-02-18] MEDS: guaiFENesin/D-METHORPHAN HB 10 ML UNIT-DOSE CUPS PO PRN (07:03)
[2018-02-18] MEDS: CLOTRIMAZOLE 1% CREAM 15 GM TUBE TP SCH ×2 (10:16→22:42)
[2018-02-18] MEDS: PRENATAL VITAMINS W/ FOLIC ACID TABLET (FP) PO SCH (10:16)
[2018-02-18] MEDS: NICOTINE 14 MG/24 HOURS TOPICAL PATCH TD SCH (10:16)
[2018-02-18] MEDS: CEPHALEXIN MONOHYDRATE 500 MG CAPSULE (UD) PO SCH ×2 (10:16→21:56)
[2018-02-18] MEDS ORDERED: PT OWN MED DRAWER 7, Y5N ONE (16:08)
[2018-02-18] MEDS: THIAMINE HCL 100 MG TABLET (FP) PO SCH (21:55)
[2018-02-19] MEDS: CEPHALEXIN MONOHYDRATE 500 MG CAPSULE (UD) PO SCH ×2 (10:41→21:39)
[2018-02-19] MEDS: NICOTINE 14 MG/24 HOURS TOPICAL PATCH TD SCH (10:41)
[2018-02-19] MEDS: PRENATAL VITAMINS W/ FOLIC ACID TABLET (FP) PO SCH (10:41)
[2018-02-19] MEDS: CLOTRIMAZOLE 1% CREAM 15 GM TUBE TP SCH ×2 (10:42→21:40)
--- NOTE | 2018-02-19 13:22 | PN ---
S Progress Note Note: Pt presents with with rash to forearms x one day. Laboratory Tests 02/15/18 02/16/18 06:00 08:00 Urine Color Straw Urine Appearance Clear Urine pH 8.0 D Ur Specific [place] 1.008 Urine Protein Negative Urine Glucose (UA) Negative Urine Ketones Negative Urine Blood Negative Urine Nitrite Negative Urine Bilirubin Negative Urine Urobilinogen Negative Ur Leukocyte Esterase Negative RPR Titer Nonreactive Vital Signs Temperature 98 F 02/19/18 06:47 Pulse Rate 80 02/19/18 06:47 Respiratory Rate 18 02/19/18 06:47 Blood Pressure 133/72 02/19/18 06:47 O2 Sat by Pulse Oximetry (%) Obj: Skin: + macular-red rash forearms. No lesions/ulcerations. No swelling of arms noted. A/P: Contact dermititis Will start Hydrocortisone 0.5% BID Continue to monitor clinically
[2018-02-19] MEDS: HYDROCORTISONE 0.5% TOPICAL OINTMENT TUBE TP SCH (21:39)
[2018-02-19] MEDS: THIAMINE HCL 100 MG TABLET (FP) PO SCH (21:39)
[2018-02-19] MEDS: guaiFENesin/D-METHORPHAN HB 10 ML UNIT-DOSE CUPS PO PRN (21:40)
[2018-02-19] MEDS ORDERED: SUVOREXANT 10 MG TABLET PO PRN (22:00)
[2018-02-20] MEDS: CEPHALEXIN MONOHYDRATE 500 MG CAPSULE (UD) PO SCH ×2 (09:02→21:47)
[2018-02-20] MEDS: NICOTINE 14 MG/24 HOURS TOPICAL PATCH TD SCH (09:02)
[2018-02-20] MEDS: PRENATAL VITAMINS W/ FOLIC ACID TABLET (FP) PO SCH (09:02)
[2018-02-20] MEDS: HYDROCORTISONE 0.5% TOPICAL OINTMENT TUBE TP SCH ×2 (09:03→21:47)
[2018-02-20] MEDS: CLOTRIMAZOLE 1% CREAM 15 GM TUBE TP SCH ×2 (09:03→21:47)
[2018-02-20] MEDS: guaiFENesin/D-METHORPHAN HB 10 ML UNIT-DOSE CUPS PO PRN (09:04)
[2018-02-20] MEDS ORDERED: PT OWN MED DRAWER 7, Y5N ONE (14:04)
[2018-02-20] MEDS: THIAMINE HCL 100 MG TABLET (FP) PO SCH (21:46)
[2018-02-21] MEDS ORDERED: PT OWN MED DRAWER 7, Y5N ONE (09:00)
[2018-02-21] MEDS: CEPHALEXIN MONOHYDRATE 500 MG CAPSULE (UD) PO SCH ×2 (09:53→21:16)
[2018-02-21] MEDS: CLOTRIMAZOLE 1% CREAM 15 GM TUBE TP SCH ×2 (09:53→21:16)
[2018-02-21] MEDS: HYDROCORTISONE 0.5% TOPICAL OINTMENT TUBE TP SCH ×2 (09:53→21:16)
[2018-02-21] MEDS: PRENATAL VITAMINS W/ FOLIC ACID TABLET (FP) PO SCH (09:53)
[2018-02-21] MEDS: NICOTINE 14 MG/24 HOURS TOPICAL PATCH TD SCH (09:53)
[2018-02-21] MEDS: THIAMINE HCL 100 MG TABLET (FP) PO SCH (21:16)
[2018-02-22] MEDS: PRENATAL VITAMINS W/ FOLIC ACID TABLET (FP) PO SCH (10:30)
[2018-02-22] MEDS: CEPHALEXIN MONOHYDRATE 500 MG CAPSULE (UD) PO SCH ×2 (10:30→21:30)
[2018-02-22] MEDS: NICOTINE 14 MG/24 HOURS TOPICAL PATCH TD SCH (10:31)
[2018-02-22] MEDS: HYDROCORTISONE 0.5% TOPICAL OINTMENT TUBE TP SCH ×2 (10:31→21:30)
[2018-02-22] MEDS: CLOTRIMAZOLE 1% CREAM 15 GM TUBE TP SCH ×2 (10:31→21:30)
[2018-02-22] MEDS: THIAMINE HCL 100 MG TABLET (FP) PO SCH (21:30)
[2018-02-22] MEDS ORDERED: SUVOREXANT 10 MG TABLET PO PRN (22:00)
[2018-02-23] MEDS: CLOTRIMAZOLE 1% CREAM 15 GM TUBE TP SCH ×2 (09:36→21:45)
[2018-02-23] MEDS: PRENATAL VITAMINS W/ FOLIC ACID TABLET (FP) PO SCH (09:36)
[2018-02-23] MEDS: NICOTINE 14 MG/24 HOURS TOPICAL PATCH TD SCH (09:36)
[2018-02-23] MEDS: HYDROCORTISONE 0.5% TOPICAL OINTMENT TUBE TP SCH ×2 (09:36→21:44)
--- NOTE | 2018-02-23 15:55 | PN ---
[facility] Progress Note Note: patient c/o of dry skin. Vital Signs Temperature 97.7 F 02/23/18 06:48 Pulse Rate 83 02/23/18 06:48 Respiratory Rate 18 02/23/18 06:48 Blood Pressure 97/64 02/23/18 06:48 O2 Sat by Pulse Oximetry (%) Laboratory Last Values Urine Color Straw 02/16/18 08:00 Urine Appearance Clear 02/16/18 08:00 Urine pH 8.0 (5.0-8.0) D 02/16/18 08:00 Ur Specific [place] 1.008 (1.001-1.035) 02/16/18 08:00 Urine Protein Negative (NEGATIVE) 02/16/18 08:00 Urine Glucose (UA) Negative (NEGATIVE) 02/16/18 08:00 Urine Ketones Negative (NEGATIVE) 02/16/18 08:00 Urine Blood Negative (NEGATIVE) 02/16/18 08:00 Urine Nitrite Negative (NEGATIVE) 02/16/18 08:00 Urine Bilirubin Negative (<2.0 mg/dL) 02/16/18 08:00 Urine Urobilinogen Negative mg/dL (0.2-1.0) 02/16/18 08:00 Ur Leukocyte Esterase Negative (NEGATIVE) 02/16/18 08:00 RPR Titer Nonreactive (NONREACTIVE) 02/15/18 06:00 A/P Patient AOx3 in no apparent distress Normal HR and rhythm + edema + 2 bilateral feet, no pitting, swelling improve since last initial assessment + dry skin + pulses throughout Plan: Increase fluids Continue current medications A & D oint for hands Continue to monitor
[2018-02-23] MEDS: VITAMINS A AND D TOPICAL OINTMENT 60 GM TUBE TP SCH ×2 (17:19→23:48)
[2018-02-23] MEDS: THIAMINE HCL 100 MG TABLET (FP) PO SCH (21:43)
[2018-02-24] MEDS: VITAMINS A AND D TOPICAL OINTMENT 60 GM TUBE TP SCH ×3 (06:09→17:11)
[2018-02-24] MEDS: PRENATAL VITAMINS W/ FOLIC ACID TABLET (FP) PO SCH (10:08)
[2018-02-24] MEDS: NICOTINE 14 MG/24 HOURS TOPICAL PATCH TD SCH (10:09)
[2018-02-24] MEDS: CLOTRIMAZOLE 1% CREAM 15 GM TUBE TP SCH ×2 (10:09→21:40)
[2018-02-24] MEDS: HYDROCORTISONE 0.5% TOPICAL OINTMENT TUBE TP SCH ×2 (10:09→21:40)
[2018-02-24] MEDS: THIAMINE HCL 100 MG TABLET (FP) PO SCH (21:39)
[2018-02-25] MEDS: VITAMINS A AND D TOPICAL OINTMENT 60 GM TUBE TP SCH ×4 (00:40→17:10)
[2018-02-25] MEDS: NICOTINE 14 MG/24 HOURS TOPICAL PATCH TD SCH (10:05)
[2018-02-25] MEDS: PRENATAL VITAMINS W/ FOLIC ACID TABLET (FP) PO SCH (10:05)
[2018-02-25] MEDS: CLOTRIMAZOLE 1% CREAM 15 GM TUBE TP SCH ×2 (10:06→21:32)
[2018-02-25] MEDS: HYDROCORTISONE 0.5% TOPICAL OINTMENT TUBE TP SCH ×2 (10:06→21:32)
[2018-02-25] MEDS: IBUPROFEN 400 MG TABLET (FP) PO PRN ×2 (10:06→16:45)
[2018-02-25] MEDS: THIAMINE HCL 100 MG TABLET (FP) PO SCH (21:32)
[2018-02-25] MEDS ORDERED: SUVOREXANT 10 MG TABLET PO PRN (22:00)
[2018-02-26] MEDS: VITAMINS A AND D TOPICAL OINTMENT 60 GM TUBE TP SCH ×4 (00:13→17:16)
[2018-02-26] MEDS: PRENATAL VITAMINS W/ FOLIC ACID TABLET (FP) PO SCH (10:18)
[2018-02-26] MEDS: NICOTINE 14 MG/24 HOURS TOPICAL PATCH TD SCH (10:20)
[2018-02-26] MEDS: CLOTRIMAZOLE 1% CREAM 15 GM TUBE TP SCH ×2 (10:20→21:39)
[2018-02-26] MEDS: HYDROCORTISONE 0.5% TOPICAL OINTMENT TUBE TP SCH ×2 (10:20→22:01)
[2018-02-26] MEDS ORDERED: PT OWN MED DRAWER 7, Y5N ONE (19:47)
[2018-02-26] MEDS: THIAMINE HCL 100 MG TABLET (FP) PO SCH (21:39)
[2018-02-27] MEDS: VITAMINS A AND D TOPICAL OINTMENT 60 GM TUBE TP SCH ×4 (00:12→17:02)
[2018-02-27] MEDS: CLOTRIMAZOLE 1% CREAM 15 GM TUBE TP SCH ×2 (10:15→21:30)
[2018-02-27] MEDS: HYDROCORTISONE 0.5% TOPICAL OINTMENT TUBE TP SCH ×2 (10:15→21:30)
[2018-02-27] MEDS: PRENATAL VITAMINS W/ FOLIC ACID TABLET (FP) PO SCH (10:15)
[2018-02-27] MEDS: NICOTINE 14 MG/24 HOURS TOPICAL PATCH TD SCH (10:15)
[2018-02-27] MEDS: THIAMINE HCL 100 MG TABLET (FP) PO SCH (21:29)
[2018-02-28] MEDS: VITAMINS A AND D TOPICAL OINTMENT 60 GM TUBE TP SCH ×5 (00:11→23:48)
[2018-02-28] MEDS: PRENATAL VITAMINS W/ FOLIC ACID TABLET (FP) PO SCH (10:03)
[2018-02-28] MEDS: CLOTRIMAZOLE 1% CREAM 15 GM TUBE TP SCH ×2 (10:03→21:30)
[2018-02-28] MEDS: NICOTINE 14 MG/24 HOURS TOPICAL PATCH TD SCH (10:03)
[2018-02-28] MEDS: HYDROCORTISONE 0.5% TOPICAL OINTMENT TUBE TP SCH ×2 (10:04→21:30)
[2018-02-28] MEDS: THIAMINE HCL 100 MG TABLET (FP) PO SCH (21:30)
[2018-02-28] MEDS ORDERED: SUVOREXANT 10 MG TABLET PO PRN (22:00)
[2018-03-01] MEDS: VITAMINS A AND D TOPICAL OINTMENT 60 GM TUBE TP SCH ×3 (06:31→17:40)
[2018-03-01] MEDS: PRENATAL VITAMINS W/ FOLIC ACID TABLET (FP) PO SCH (10:12)
[2018-03-01] MEDS: NICOTINE 14 MG/24 HOURS TOPICAL PATCH TD SCH (10:13)
[2018-03-01] MEDS: CLOTRIMAZOLE 1% CREAM 15 GM TUBE TP SCH ×2 (10:13→21:51)
[2018-03-01] MEDS: HYDROCORTISONE 0.5% TOPICAL OINTMENT TUBE TP SCH ×2 (10:13→21:51)
[2018-03-01] MEDS: THIAMINE HCL 100 MG TABLET (FP) PO SCH (21:50)
[2018-03-02] MEDS: VITAMINS A AND D TOPICAL OINTMENT 60 GM TUBE TP SCH ×4 (00:14→18:15)
[2018-03-02] MEDS: PRENATAL VITAMINS W/ FOLIC ACID TABLET (FP) PO SCH (10:05)
[2018-03-02] MEDS: NICOTINE 14 MG/24 HOURS TOPICAL PATCH TD SCH (10:05)
[2018-03-02] MEDS: CLOTRIMAZOLE 1% CREAM 15 GM TUBE TP SCH (10:05)
[2018-03-02] MEDS: HYDROCORTISONE 0.5% TOPICAL OINTMENT TUBE TP SCH (10:06)
[2018-03-02] MEDS: THIAMINE HCL 100 MG TABLET (FP) PO SCH (21:51)
[2018-03-02] MEDS: IBUPROFEN 400 MG TABLET (FP) PO PRN (21:52)
[2018-03-03] MEDS: VITAMINS A AND D TOPICAL OINTMENT 60 GM TUBE TP SCH ×4 (00:28→17:05)
[2018-03-03] MEDS: NICOTINE 14 MG/24 HOURS TOPICAL PATCH TD SCH (09:58)
[2018-03-03] MEDS: PRENATAL VITAMINS W/ FOLIC ACID TABLET (FP) PO SCH (09:58)
[2018-03-03] MEDS: HYDROCORTISONE 0.5% TOPICAL OINTMENT TUBE TP SCH ×3 (10:00→21:41)
[2018-03-03] MEDS ORDERED: PT OWN MED DRAWER 7, Y5N ONE (10:01)
[2018-03-03] MEDS: CLOTRIMAZOLE 1% CREAM 15 GM TUBE TP SCH ×3 (10:02→21:41)
[2018-03-03] MEDS: THIAMINE HCL 100 MG TABLET (FP) PO SCH (21:40)
[2018-03-03] MEDS ORDERED: SUVOREXANT 10 MG TABLET PO PRN (22:00)
[2018-03-04] MEDS: VITAMINS A AND D TOPICAL OINTMENT 60 GM TUBE TP SCH ×5 (00:48→23:18)
[2018-03-04] MEDS: PRENATAL VITAMINS W/ FOLIC ACID TABLET (FP) PO SCH (10:28)
[2018-03-04] MEDS: HYDROCORTISONE 0.5% TOPICAL OINTMENT TUBE TP SCH ×2 (10:29→21:34)
[2018-03-04] MEDS: NICOTINE 14 MG/24 HOURS TOPICAL PATCH TD SCH (10:29)
[2018-03-04] MEDS: CLOTRIMAZOLE 1% CREAM 15 GM TUBE TP SCH ×2 (10:29→21:33)
[2018-03-04] MEDS: THIAMINE HCL 100 MG TABLET (FP) PO SCH (21:34)
[2018-03-05] MEDS: VITAMINS A AND D TOPICAL OINTMENT 60 GM TUBE TP SCH ×4 (06:19→23:50)
[2018-03-05] MEDS: NICOTINE 14 MG/24 HOURS TOPICAL PATCH TD SCH ×2 (10:45→10:51)
[2018-03-05] MEDS: PRENATAL VITAMINS W/ FOLIC ACID TABLET (FP) PO SCH (10:45)
[2018-03-05] MEDS: CLOTRIMAZOLE 1% CREAM 15 GM TUBE TP SCH ×3 (10:45→21:47)
[2018-03-05] MEDS: HYDROCORTISONE 0.5% TOPICAL OINTMENT TUBE TP SCH ×3 (10:45→21:47)
[2018-03-05] MEDS: THIAMINE HCL 100 MG TABLET (FP) PO SCH (21:46)
[2018-03-06] MEDS ORDERED: PT OWN MED DRAWER 7, Y5N ONE (02:58)
[2018-03-06] MEDS: VITAMINS A AND D TOPICAL OINTMENT 60 GM TUBE TP SCH ×3 (06:27→17:58)
[2018-03-06] MEDS: HYDROCORTISONE 0.5% TOPICAL OINTMENT TUBE TP SCH ×2 (10:52→22:00)
[2018-03-06] MEDS: NICOTINE 14 MG/24 HOURS TOPICAL PATCH TD SCH (10:52)
[2018-03-06] MEDS: PRENATAL VITAMINS W/ FOLIC ACID TABLET (FP) PO SCH (10:52)
[2018-03-06] MEDS: CLOTRIMAZOLE 1% CREAM 15 GM TUBE TP SCH ×2 (10:52→22:00)
--- NOTE | 2018-03-06 17:46 | PN ---
[facility] Progress Note Note: Psychiatry Attending's sales administration manager note : Contacted for renewal of belsomra. Chart reviewed.Treatment plan revisited. Met briefly with patient. Mr Thorpe endorses decent sleep. Belsomra not dispensed since prescribed. Patient appears well rested.Jovial.Pleasant. Neatly groomed.Visible on the unit. Belsomra 10 mg po hs prn.NOT renewed.
[2018-03-06] MEDS ORDERED: SUVOREXANT 10 MG TABLET PO PRN (22:00)
[2018-03-06] MEDS: THIAMINE HCL 100 MG TABLET (FP) PO SCH (22:01)
[2018-03-06] MEDS: IBUPROFEN 400 MG TABLET (FP) PO PRN (22:01)
[2018-03-07] MEDS: VITAMINS A AND D TOPICAL OINTMENT 60 GM TUBE TP SCH ×5 (00:30→23:44)
[2018-03-07] MEDS ORDERED: PT OWN MED DRAWER 7, Y5N ONE ×3 (02:58→20:25)
[2018-03-07] MEDS: NICOTINE 14 MG/24 HOURS TOPICAL PATCH TD SCH (10:39)
[2018-03-07] MEDS: PRENATAL VITAMINS W/ FOLIC ACID TABLET (FP) PO SCH (10:39)
[2018-03-07] MEDS: HYDROCORTISONE 0.5% TOPICAL OINTMENT TUBE TP SCH ×2 (10:40→21:49)
[2018-03-07] MEDS: CLOTRIMAZOLE 1% CREAM 15 GM TUBE TP SCH ×2 (10:40→21:49)
[2018-03-07] MEDS: THIAMINE HCL 100 MG TABLET (FP) PO SCH (21:49)
[2018-03-07] MEDS: IBUPROFEN 400 MG TABLET (FP) PO PRN (21:50)
[2018-03-08] MEDS: VITAMINS A AND D TOPICAL OINTMENT 60 GM TUBE TP SCH ×3 (07:11→17:03)
[2018-03-08] MEDS: NICOTINE 14 MG/24 HOURS TOPICAL PATCH TD SCH (10:31)
[2018-03-08] MEDS: HYDROCORTISONE 0.5% TOPICAL OINTMENT TUBE TP SCH ×2 (10:31→21:21)
[2018-03-08] MEDS: CLOTRIMAZOLE 1% CREAM 15 GM TUBE TP SCH ×2 (10:31→21:21)
[2018-03-08] MEDS: PRENATAL VITAMINS W/ FOLIC ACID TABLET (FP) PO SCH (10:31)
[2018-03-08] MEDS: THIAMINE HCL 100 MG TABLET (FP) PO SCH (21:20)
[2018-03-08] MEDS: IBUPROFEN 400 MG TABLET (FP) PO PRN (21:21)
[2018-03-09] MEDS: VITAMINS A AND D TOPICAL OINTMENT 60 GM TUBE TP SCH ×4 (06:29→18:24)
[2018-03-09] MEDS: HYDROCORTISONE 0.5% TOPICAL OINTMENT TUBE TP SCH ×2 (10:03→21:55)
[2018-03-09] MEDS: CLOTRIMAZOLE 1% CREAM 15 GM TUBE TP SCH ×2 (10:11→21:55)
[2018-03-09] MEDS: PRENATAL VITAMINS W/ FOLIC ACID TABLET (FP) PO SCH (10:11)
[2018-03-09] MEDS: NICOTINE 14 MG/24 HOURS TOPICAL PATCH TD SCH (10:11)
[2018-03-09] MEDS ORDERED: PT OWN MED DRAWER 7, Y5N ONE (18:25)
[2018-03-09] MEDS: THIAMINE HCL 100 MG TABLET (FP) PO SCH (21:54)
[2018-03-09] MEDS: IBUPROFEN 400 MG TABLET (FP) PO PRN (21:54)
[2018-03-10] MEDS: VITAMINS A AND D TOPICAL OINTMENT 60 GM TUBE TP SCH ×3 (07:10→18:53)
[2018-03-10] MEDS: PRENATAL VITAMINS W/ FOLIC ACID TABLET (FP) PO SCH (10:24)
[2018-03-10] MEDS: NICOTINE 14 MG/24 HOURS TOPICAL PATCH TD SCH (10:24)
[2018-03-10] MEDS: CLOTRIMAZOLE 1% CREAM 15 GM TUBE TP SCH ×2 (10:25→21:53)
[2018-03-10] MEDS: HYDROCORTISONE 0.5% TOPICAL OINTMENT TUBE TP SCH ×2 (10:25→21:53)
[2018-03-10] MEDS: IBUPROFEN 400 MG TABLET (FP) PO PRN (21:53)
[2018-03-10] MEDS: THIAMINE HCL 100 MG TABLET (FP) PO SCH (21:53)
[2018-03-11] MEDS: VITAMINS A AND D TOPICAL OINTMENT 60 GM TUBE TP SCH ×5 (00:30→23:10)
[2018-03-11] MEDS ORDERED: PT OWN MED DRAWER 7, Y5N ONE ×3 (03:17→20:23)
[2018-03-11] MEDS: HYDROCORTISONE 0.5% TOPICAL OINTMENT TUBE TP SCH ×2 (10:12→21:35)
[2018-03-11] MEDS: PRENATAL VITAMINS W/ FOLIC ACID TABLET (FP) PO SCH (10:12)
[2018-03-11] MEDS: NICOTINE 14 MG/24 HOURS TOPICAL PATCH TD SCH (10:12)
[2018-03-11] MEDS: CLOTRIMAZOLE 1% CREAM 15 GM TUBE TP SCH ×2 (10:12→21:35)
[2018-03-11] MEDS: THIAMINE HCL 100 MG TABLET (FP) PO SCH (21:36)
[2018-03-11] MEDS: IBUPROFEN 400 MG TABLET (FP) PO PRN (21:37)
[2018-03-12] MEDS: VITAMINS A AND D TOPICAL OINTMENT 60 GM TUBE TP SCH ×3 (06:18→17:40)
[2018-03-12] MEDS: CLOTRIMAZOLE 1% CREAM 15 GM TUBE TP SCH ×2 (11:04→21:14)
[2018-03-12] MEDS: NICOTINE 14 MG/24 HOURS TOPICAL PATCH TD SCH (11:04)
[2018-03-12] MEDS: HYDROCORTISONE 0.5% TOPICAL OINTMENT TUBE TP SCH ×2 (11:04→21:14)
[2018-03-12] MEDS: PRENATAL VITAMINS W/ FOLIC ACID TABLET (FP) PO SCH (11:05)
[2018-03-12] MEDS: THIAMINE HCL 100 MG TABLET (FP) PO SCH (21:12)
[2018-03-12] MEDS: IBUPROFEN 400 MG TABLET (FP) PO PRN (21:13)
[2018-03-12] MEDS ORDERED: PT OWN MED DRAWER 7, Y5N ONE (21:13)
[2018-03-13] MEDS: VITAMINS A AND D TOPICAL OINTMENT 60 GM TUBE TP SCH ×4 (00:38→17:46)
[2018-03-13] MEDS: CLOTRIMAZOLE 1% CREAM 15 GM TUBE TP SCH ×2 (10:41→21:54)
[2018-03-13] MEDS: PRENATAL VITAMINS W/ FOLIC ACID TABLET (FP) PO SCH (10:41)
[2018-03-13] MEDS: HYDROCORTISONE 0.5% TOPICAL OINTMENT TUBE TP SCH ×2 (10:41→21:54)
[2018-03-13] MEDS: NICOTINE 14 MG/24 HOURS TOPICAL PATCH TD SCH (10:41)
[2018-03-13] MEDS: IBUPROFEN 400 MG TABLET (FP) PO PRN (21:54)
[2018-03-13] MEDS: THIAMINE HCL 100 MG TABLET (FP) PO SCH (21:54)
[2018-03-14] MEDS: VITAMINS A AND D TOPICAL OINTMENT 60 GM TUBE TP SCH ×3 (06:00→17:38)
[2018-03-14] MEDS: PRENATAL VITAMINS W/ FOLIC ACID TABLET (FP) PO SCH (09:56)
[2018-03-14] MEDS: HYDROCORTISONE 0.5% TOPICAL OINTMENT TUBE TP SCH ×2 (09:56→21:29)
[2018-03-14] MEDS: NICOTINE 14 MG/24 HOURS TOPICAL PATCH TD SCH (09:56)
[2018-03-14] MEDS: CLOTRIMAZOLE 1% CREAM 15 GM TUBE TP SCH ×2 (09:56→21:30)
[2018-03-14] MEDS: THIAMINE HCL 100 MG TABLET (FP) PO SCH (21:29)
[2018-03-14] MEDS: IBUPROFEN 400 MG TABLET (FP) PO PRN (21:30)
[2018-03-15] MEDS: VITAMINS A AND D TOPICAL OINTMENT 60 GM TUBE TP SCH ×5 (00:19→18:30)
[2018-03-15] MEDS ORDERED: PT OWN MED DRAWER 7, Y5N ONE ×2 (03:27→16:48)
[2018-03-15] MEDS: PRENATAL VITAMINS W/ FOLIC ACID TABLET (FP) PO SCH (09:42)
[2018-03-15] MEDS: CLOTRIMAZOLE 1% CREAM 15 GM TUBE TP SCH ×2 (09:42→21:59)
[2018-03-15] MEDS: HYDROCORTISONE 0.5% TOPICAL OINTMENT TUBE TP SCH ×2 (09:42→21:59)
[2018-03-15] MEDS: NICOTINE 14 MG/24 HOURS TOPICAL PATCH TD SCH (09:43)
[2018-03-15] MEDS: THIAMINE HCL 100 MG TABLET (FP) PO SCH (21:57)
[2018-03-15] MEDS: IBUPROFEN 400 MG TABLET (FP) PO PRN (21:58)
[2018-03-16] MEDS: VITAMINS A AND D TOPICAL OINTMENT 60 GM TUBE TP SCH ×4 (00:53→18:48)
[2018-03-16] MEDS: CLOTRIMAZOLE 1% CREAM 15 GM TUBE TP SCH ×2 (10:40→21:48)
[2018-03-16] MEDS: NICOTINE 14 MG/24 HOURS TOPICAL PATCH TD SCH (10:40)
[2018-03-16] MEDS: PRENATAL VITAMINS W/ FOLIC ACID TABLET (FP) PO SCH (10:40)
[2018-03-16] MEDS: HYDROCORTISONE 0.5% TOPICAL OINTMENT TUBE TP SCH ×2 (10:40→21:48)
[2018-03-16] MEDS ORDERED: PT OWN MED DRAWER 7, Y5N ONE (19:13)
[2018-03-16] MEDS: IBUPROFEN 400 MG TABLET (FP) PO PRN (21:49)
[2018-03-16] MEDS: THIAMINE HCL 100 MG TABLET (FP) PO SCH (21:49)
[2018-03-17] MEDS: VITAMINS A AND D TOPICAL OINTMENT 60 GM TUBE TP SCH ×5 (06:59→23:43)
[2018-03-17] MEDS: PRENATAL VITAMINS W/ FOLIC ACID TABLET (FP) PO SCH (09:59)
[2018-03-17] MEDS: NICOTINE 14 MG/24 HOURS TOPICAL PATCH TD SCH (10:00)
[2018-03-17] MEDS: HYDROCORTISONE 0.5% TOPICAL OINTMENT TUBE TP SCH ×2 (10:00→21:21)
[2018-03-17] MEDS: CLOTRIMAZOLE 1% CREAM 15 GM TUBE TP SCH ×2 (10:00→21:20)
[2018-03-17] MEDS ORDERED: PT OWN MED DRAWER 7, Y5N ONE ×3 (17:07→23:43)
[2018-03-17] MEDS: THIAMINE HCL 100 MG TABLET (FP) PO SCH (21:19)
[2018-03-17] MEDS: IBUPROFEN 400 MG TABLET (FP) PO PRN (21:19)
[2018-03-18] MEDS: VITAMINS A AND D TOPICAL OINTMENT 60 GM TUBE TP SCH ×3 (06:03→17:35)
[2018-03-18] MEDS: HYDROCORTISONE 0.5% TOPICAL OINTMENT TUBE TP SCH ×2 (09:39→21:18)
[2018-03-18] MEDS: PRENATAL VITAMINS W/ FOLIC ACID TABLET (FP) PO SCH (09:39)
[2018-03-18] MEDS: CLOTRIMAZOLE 1% CREAM 15 GM TUBE TP SCH ×2 (09:39→21:18)
[2018-03-18] MEDS: NICOTINE 14 MG/24 HOURS TOPICAL PATCH TD SCH (09:40)
[2018-03-18] MEDS: IBUPROFEN 400 MG TABLET (FP) PO PRN (21:17)
[2018-03-18] MEDS: THIAMINE HCL 100 MG TABLET (FP) PO SCH (21:17)
[2018-03-19] MEDS: VITAMINS A AND D TOPICAL OINTMENT 60 GM TUBE TP SCH ×4 (00:05→17:48)
[2018-03-19] MEDS ORDERED: PT OWN MED DRAWER 7, Y5N ONE ×3 (05:20→20:19)
[2018-03-19] MEDS: PRENATAL VITAMINS W/ FOLIC ACID TABLET (FP) PO SCH (09:38)
[2018-03-19] MEDS: HYDROCORTISONE 0.5% TOPICAL OINTMENT TUBE TP SCH ×2 (09:39→22:18)
[2018-03-19] MEDS: CLOTRIMAZOLE 1% CREAM 15 GM TUBE TP SCH ×2 (09:39→22:19)
[2018-03-19] MEDS: NICOTINE 14 MG/24 HOURS TOPICAL PATCH TD SCH (09:39)
[2018-03-19] MEDS: THIAMINE HCL 100 MG TABLET (FP) PO SCH (22:03)
[2018-03-19] MEDS: IBUPROFEN 400 MG TABLET (FP) PO PRN (22:04)
[2018-03-20] MEDS: VITAMINS A AND D TOPICAL OINTMENT 60 GM TUBE TP SCH ×4 (01:21→16:00)
[2018-03-20] MEDS ORDERED: PT OWN MED DRAWER 7, Y5N ONE (08:37)
[2018-03-20] MEDS: NICOTINE 14 MG/24 HOURS TOPICAL PATCH TD SCH (09:34)
[2018-03-20] MEDS: CLOTRIMAZOLE 1% CREAM 15 GM TUBE TP SCH ×2 (09:34→21:23)
[2018-03-20] MEDS: PRENATAL VITAMINS W/ FOLIC ACID TABLET (FP) PO SCH (09:34)
[2018-03-20] MEDS: HYDROCORTISONE 0.5% TOPICAL OINTMENT TUBE TP SCH ×2 (09:34→22:35)
[2018-03-20] MEDS: THIAMINE HCL 100 MG TABLET (FP) PO SCH (21:23)
[2018-03-20] MEDS: IBUPROFEN 400 MG TABLET (FP) PO PRN (21:23)
[2018-03-21] MEDS: VITAMINS A AND D TOPICAL OINTMENT 60 GM TUBE TP SCH ×4 (00:19→17:54)
[2018-03-21] MEDS ORDERED: PT OWN MED DRAWER 7, Y5N ONE ×2 (02:50→08:30)
[2018-03-21] MEDS: PRENATAL VITAMINS W/ FOLIC ACID TABLET (FP) PO SCH (09:28)
[2018-03-21] MEDS: HYDROCORTISONE 0.5% TOPICAL OINTMENT TUBE TP SCH ×2 (09:29→23:09)
[2018-03-21] MEDS: CLOTRIMAZOLE 1% CREAM 15 GM TUBE TP SCH ×2 (09:30→23:09)
[2018-03-21] MEDS: NICOTINE 14 MG/24 HOURS TOPICAL PATCH TD SCH (09:30)
[2018-03-21] MEDS: THIAMINE HCL 100 MG TABLET (FP) PO SCH (23:06)
[2018-03-21] MEDS: IBUPROFEN 400 MG TABLET (FP) PO PRN (23:07)
[2018-03-22] MEDS: VITAMINS A AND D TOPICAL OINTMENT 60 GM TUBE TP SCH ×4 (00:42→23:50)
[2018-03-22] MEDS: PRENATAL VITAMINS W/ FOLIC ACID TABLET (FP) PO SCH (09:47)
[2018-03-22] MEDS: NICOTINE 14 MG/24 HOURS TOPICAL PATCH TD SCH (09:47)
[2018-03-22] MEDS: CLOTRIMAZOLE 1% CREAM 15 GM TUBE TP SCH ×2 (09:47→22:57)
[2018-03-22] MEDS: HYDROCORTISONE 0.5% TOPICAL OINTMENT TUBE TP SCH ×2 (09:47→22:58)
[2018-03-22] MEDS: THIAMINE HCL 100 MG TABLET (FP) PO SCH (22:55)
[2018-03-22] MEDS: IBUPROFEN 400 MG TABLET (FP) PO PRN (22:57)
--- NOTE | 2018-03-23 09:15 | PN ---
Psychiatric Progress Note Vital Signs: Vital Signs Period Temp Pulse Resp BP Sys/Hallman Pulse Ox Last 24 Hr 97.2 F 69 18-18 108/68 Date of Session: 03/23/18 Chief Complaint:: Discharge Note HPI: Patient addressing Alcohol Dependence comorbid with Nicotine Dependence and Alcohol-Induced Sleep Disorder ROS: Bilateral cellulitis of lower leg, S/P left elbow fracture Current Medications: Active Medications Generic Name Dose Route Start Last Admin Trade Name Freq PRN Reason Stop Dose Admin Acetaminophen 650 mg 02/15/18 23:57 Tylenol - PO Q4H PRN FEVER Al Hydroxide/Mg Hydroxide 30 ml 02/15/18 23:57 Mylanta Oral Suspension - PO Q6H PRN DYSPEPSIA Clotrimazole 1 applic 02/16/18 22:00 03/22/18 22:57 Lotrimin 1% Cream - TP Not Given BID ROBERTO Eucalyptus/Menthol/Phenol/Sorbitol 1 each 02/15/18 23:57 Cepastat Lozenge - MM Q4H PRN SORE THROAT Guaifenesin 10 ml 02/15/18 23:57 02/20/18 09:04 Robitussin Dm - PO 10 ml Q6H PRN Administration COUGH Hydrocortisone 1 applic 02/19/18 22:00 03/22/18 22:58 Hytone 0.5% Ointment - TP Not Given BID ROBERTO Ibuprofen 400 mg 02/15/18 23:57 03/22/18 22:57 Motrin - PO 400 mg Q6H PRN Administration Pain level 4-6 Lactic Acid 1 applic 02/16/18 13:55 02/21/18 09:54 Lac-Hydrin 12 TP 1 applic BID PRN Administration DRY SKIN Loperamide HCl 4 mg 02/15/18 23:57 Imodium - PO Q6H PRN DIARRHEA Magnesium Citrate 300 ml 02/15/18 23:57 Citroma - PO Q48H PRN CONSTIPATION Magnesium Hydroxide 30 ml 02/15/18 23:57 Milk Of Magnesia - PO DAILY PRN CONSTIPATION Nicotine 14 mg 02/16/18 10:00 03/22/18 09:47 Nicoderm Patch - TD Not Given DAILY ROBERTO Nicotine Polacrilex 2 mg 02/15/18 23:57 Nicorette Gum - BC Q2H PRN NICOTINE REPLACEMENT RX Multivit/Folic Acid/Iron 1 tab 02/16/18 10:00 03/22/18 09:47 Vitamins ([facility]) - PO 1 tab DAILY ROBERTO Administration Pseudoephedrine/Triprolidine 1 combo 02/15/18 23:57 Actifed - PO TID PRN NASAL CONGESTION Thiamine HCl 100 mg 02/16/18 22:00 03/22/18 22:55 Vitamin B1 - PO 100 mg HS ROBERTO Administration Vitamin A/Vitamin D 1 applic 02/23/18 18:00 03/22/18 23:50 Vitamin A & D Top Oint - TP Not Given Q6HPO ROBERTO Current Side Effect: No Lab tests ordered: Yes Lab tests reviewed: Yes Provider note:: Patient will complete this program on 03/24/18. He has met his treatment goals and will continue to address his issues in [place] [facility]. Told sheet writer that from his participation in this program, he has learned the importance of making meetings and have sponsor. He is stable for discharge on 03/24/18 Total face to face time:: 35 Mental Status Exam - Mental Status Exam Alert and Oriented to: Time, Place, Person Cognitive Function: Fair Patient Appearance: Well Groomed Mood: Hopeful, Euthymic Affect: Appropriate Patient Behavior: Cooperative Speech Pattern: Clear Voice Loudness: Normal Thought Process: Intact, Goal Oriented Thought Disorder: Not Present Hallucinations: Denies Suicidal Ideation: Denies Homicidal Ideation: Denies Insight/Judgement: Fair Sleep: Fair Appetite: Good Muscle strength/Tone: Normal Gait/Station: Normal Psychiatric Treatment Plan - Problem List (1) Alcohol dependence Qualifiers: Substance use status: uncomplicated Qualified Code(s): F10.20 - Alcohol dependence, uncomplicated (5) Dislocation, elbow closed Qualifiers: Laterality: left (6) Left elbow fracture Qualifiers: Encounter type: initial encounter Fracture type: closed Qualified Code(s) : S42.402A - Unspecified fracture of lower end of left humerus, initial encounter for closed fracture Initial treatment plan: Patient will be discharged tomorrow and referred to [facility] [place] [facility]
[2018-03-23] MEDS: PRENATAL VITAMINS W/ FOLIC ACID TABLET (FP) PO SCH (09:49)
[2018-03-23] MEDS: CLOTRIMAZOLE 1% CREAM 15 GM TUBE TP SCH ×2 (09:50→21:09)
[2018-03-23] MEDS: VITAMINS A AND D TOPICAL OINTMENT 60 GM TUBE TP SCH ×4 (09:50→23:52)
[2018-03-23] MEDS: NICOTINE 14 MG/24 HOURS TOPICAL PATCH TD SCH (09:50)
[2018-03-23] MEDS: HYDROCORTISONE 0.5% TOPICAL OINTMENT TUBE TP SCH ×2 (09:50→21:09)
[2018-03-23] MEDS: IBUPROFEN 400 MG TABLET (FP) PO PRN (21:10)
[2018-03-23] MEDS: THIAMINE HCL 100 MG TABLET (FP) PO SCH (21:11)
[2018-03-24 07:02] VITALS: BP 105/58; PULSE 63; TEMP 97.6
== END 2018-03-24 08:45 | disposition home or self-care (01) | DRG 772 ==
LOC: YASAS 20:39 → Y3N 23:18 → Y3W 02-16 00:01
PROVIDERS: ADMIT Internal Medicine; ATTEND Psychiatry & Neurology Psychiatry
PROC: HZ42ZZZ Group Counseling for Substance Abuse Treatment, Cognitive-Behavioral (ICD-10-PCS; principal; 2018-02-15)
DX: F17.213 Nicotine dependence, cigarettes, with withdrawal (principal); F10.24 Alcohol dependence with alcohol-induced mood disorder; L03.116 Cellulitis of left lower limb; L03.115 Cellulitis of right lower limb; L25.9 Unspecified contact dermatitis, unspecified cause; B35.3 Tinea pedis; L85.3 Xerosis cutis
CPT/HCPCS: 36415; 81003; 86593; 93005; 93010